=== PATIENT | female | born 2000 | race Caucasian/White ===

== ENCOUNTER 2021-01-01 14:37 | Emergency (ER) | payer OTHER, SELFPAY ==
[2021-01-01 17:15] VITALS: BP 137/90; PULSE 88; RESP 19; TEMP 36.8; O2SAT 99; BMI 25.4
[2021-01-01 17:21] LABS: UTC Pregnancy Test, Urine Negative (Negative)
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
[2021-01-01 18:59] VITALS: BP 137/90; PULSE 88; RESP 19; TEMP 36.8
== END 2021-01-01 19:02 | disposition home or self-care (01) ==
PROVIDERS: Emergency Provider Nurse Practitioner
DX: S16.1XXA Strain of muscle, fascia and tendon at neck level, initial encounter (principal); V43.52XA Car driver injured in collision with other type car in traffic accident, initial encounter; Y92.414 Local residential or business street as the place of occurrence of the external cause
CPT/HCPCS: 29799; 72040; 72100; 81025; 99202; G0463

== ENCOUNTER 2023-02-11 22:21 | Emergency (ER) | payer MEDICAID, SELFPAY ==
[2023-02-11 22:22] VITALS: BP 130/89; PULSE 92; RESP 16; TEMP 36.7; O2SAT 100; BMI 23.6
--- OUTSIDE RECORDS SUMMARY | 2023-02-11 22:29 | XMS_ITS | Patient Health Record ---
Author Name Unknown Organization [facility] Address [address] [place] [address] Care Team Providers Care Field Crop Ii Farmworker Name Role Phone Darlin Madrid Unavailable [phone] Allergies No Known Allergies Reason For Referral No Information Medications Medication SIG (Take, Route, Fr equency, Duration) Notes Start Date End Date Status Kyleena 19.5 MG as directed Intrauterine Active Social History Tobacco Use: Social History Observation Description Date Details (start date - stop date) Current Smoker NA - NA Tobacco Use/Smoking Question Answer Notes Are you a current smoker How often do you smoke cigarettes? every day Additional Findings: Tobacco User Pipe smoker Alcohol Screen Question Answer Notes Did you have a drink containing alcohol in the p ast year? No Points 0 Interpretation Negative Problems Problem Type SNOMED Code ICD Code Onset Dates Problem Status W/U Status Risk Notes Problem Insertion of intrauterine contraceptive device (52870857) Encounter for insertion of intrauterine contraceptive device (IUD) (Z30.430) Active confirmed Plan Of Treatment No Information Insurance Providers Payer Name Payer Address Payer Phone Subscriber Number Group Number Insured Name Patient Relationship to Insured Coverage Start Date Coverage End Date [employer] [address] [address] [place], [place] [id number] Trang Mercado Self - patient is the insured 2 Medical (General) History Medical History History ICD Code Amemia Anxiety Depression asthma Surgical History Surgery Date(Month/Year) Oral
[2023-02-11 23:00] VITALS: BP 129/86; PULSE 86; O2SAT 98
--- NOTE | 2023-02-11 23:05 | CT_ITS ---
PROCEDURE INFORMATION: Exam: CT Abdomen And Pelvis With Contrast Exam date and time: 02/11/2023 11:36 PM Age: 23 years old Clinical indication: Abdominal pain; Additional info: Abd pain, more focal in ruq and rlq TECHNIQUE: Imaging protocol: Computed tomography of the abdomen and pelvis with contrast. Total images: 272 Radiation optimization: All CT scans at this facility use at least one of these dose optimization techniques: automated exposure control; mA and/or kV adjustment per patient size (includes targeted exams where dose is matched to clinical indication); or iterative reconstruction. Contrast material: ISOVUE; Contrast volume: 75 ml; Contrast route: IV; COMPARISON: CR XR LUMBAR SPINE 2-3V 01/01/2021 5:48 PM FINDINGS: Lungs: Lung bases are clear. Heart: Normal heart size. Liver: Normal. No mass. Gallbladder and bile ducts: Normal. No calcified stones. No ductal dilation. Pancreas: Normal. No ductal dilation. Spleen: Normal. No splenomegaly. Adrenal glands: Normal. No mass. Kidneys and ureters: No hydronephrosis, nephrolithiasis, or renal mass. No perinephric fluid. Stomach and bowel: Unremarkable stomach and duodenum. No ileus or bowel obstruction. Small bowel appears within normal limits. Unremarkable terminal ileum. Shallow scattered colonic air-fluid levels may reflect diarrheal state. No evidence for active colitis. Collapsed rectum. Appendix: Normal appendix. Intraperitoneal space: Unremarkable. No free air. No significant fluid collection. Vasculature: Abdominal aorta is normal in caliber. Major abdominal vessels enhance appropriately. Lymph nodes: Unremarkable. No enlarged lymph nodes. Urinary bladder: Collapsed bladder. Reproductive: Anteverted nonenlarged uterus containing an IUD. Pelvic venous congestion. 2.5 cm right ovarian cyst requiring no strict follow-up. Bones/joints: No acute osseous abnormality or concerning bone lesions. Soft tissues: Tiny fat containing periumbilical hernia. IMPRESSION: 1. Scattered shallow colonic air-fluid levels may reflect diarrheal state. No active colitis. 2. 2.5 cm right ovarian cyst requiring no strict follow-up. 3. Normal appendix. 4. Pelvic venous congestion. 5. Status post IUD.
--- NOTE | 2023-02-11 23:08 | HMH.EDGENADL ---
Discharge Plan Disposition Patient Disposition: Home, Self-Care Condition: Good Prescriptions Prescriptions: No Action albuterol sulfate 1.25 MG/3 ML solution for nebulization 1.25 mg IH NEEDED PRN (Reason: ALLERGIES) cyclobenzaprine 10 MG tablet 10 mg PO TID PRN (Reason: Muscle Spasm) Qty: 15 0RF etodolac 200 MG capsule 200 mg PO Q8HP PRN (Reason: Moderate Pain) Qty: 20 0RF Referrals Follow up/Referrals: Provider,Referral, MD [Primary Care Provider] - See instructions Activity Restrictions/Add. Instructions Additional Instructions/Restrictions: You have been evaluated in the ED for your complaints. You may follow-up with your PCP in the next 3 to 5 days. Please return to ED for any new or worsening symptoms. Please follow-up with your residential housekeeper as discussed. I have also provided you with pamphlet for gynecology referral. Please take Tylenol and ibuprofen as needed for pain. Clinical Impressions Clinical Impression: Abdominal pain, right lower quadrant, Pelvic congestion Ovarian cyst Qualifiers: Laterality: right Qualified Code(s): N83.201 - Unspecified ovarian cyst, right side Instructions Patient Instructions: DI for Acute Abdominal Pain Discharge ED Provider: Cristhian Pollock General Adult HPI General Chief complaint: Abdominal Pain Stated complaint: pelvic pain Time Seen by Provider: 02/11/23 23:17 Mode of Arrival: Ambulatory Source of Information: Patient Limitations: No Limitations Description of Symptoms (Recalled from ER Triage Doc. by RN): Pt presents with RLQ pain associated with intermittent nausea that began on Friday. History of Present Illness HPI narrative: 23-year-old female with no pertinent past medical history, presents today for evaluation concerning right lower quadrant abdominal pain which she states she noticed about 3 months ago. She states that on Friday her pain worsened. Has had associated nausea without emesis. She denies any fevers, chills, chest pain, shortness of breath, dysuria, hematuria, diarrhea, constipation. She states that she has an IUD in place. Denies any vaginal bleeding. No further complaints. Related Data Home Medications Medication Instructions Recorded Confirmed albuterol sulfate 1.25 mg/3 mL 1.25 mg IH NEEDED PRN ALLERGIES 01/01/21 01/01/21 solution for nebulization Previous Rx's Medication Instructions Recorded cyclobenzaprine 10 mg tablet 10 mg PO TID PRN Muscle Spasm #15 01/01/21 tabs etodolac 200 mg capsule 200 mg PO Q8HP PRN Moderate Pain 01/01/21 #20 caps Allergies Allergy/AdvReac Type Severity Reaction Status Date / Time erythromycin base Allergy Verified 01/01/21 15:29 [facility] Disclaimer: The information contained in this section may have been updated after the patient was seen, as this information can be updated by other users. Social History Smoking Status: Current every day smoker alcohol intake: current current occupational status: employed Travel in the last 8 weeks: None ROS Obtained: Yes All systems reviewed & no additional complaints except as documented Physical Exam General General appearance: alert and in no apparent distress Head Head exam: atraumatic and normocephalic Eye Eye exam: Present normal appearance, PERRL and EOMI ENT ENT exam: Present normal oropharynx and mucous membranes moist Neck Neck exam: Present full ROM; Absent meningismus Respiratory Respiratory exam: Absent respiratory distress, wheezes, stridor or accessory muscle use Cardiovascular Cardiovascular exam: Present normal rhythm Abdominal Exam Abdominal exam: Present soft and tenderness (Generalized tenderness palpation of the abdomen are more focal in the right upper quadrant and right lower quadrant. No rebound or guarding.); Absent distention, guarding, rebound or rigidity Neurological Exam Neurological exam: Present alert, oriented X3 and CN II-XII intact; Absent motor sensory deficit Psychiatric Psychiatric exam: Present normal affect and normal mood Skin Skin exam: Present warm and dry Medical Decision Making Medical Records Medical records reviewed: Yes I reviewed the patient's medical records. Cullen Inquiry Pt receiving controlled substance: No Cullen was queried for this patient: No Vital Signs: 02/11/23 22:22 02/11/23 23:00 02/11/23 23:39 Temperature 98.1 F Temperature Source Oral Pulse Rate 86 114 H Pulse Rate [Right] 92 H Respiratory Rate 16 Blood Pressure 129/86 129/98 H Blood Pressure [Right Arm] 130/89 Blood Pressure Mean 95 Blood Pressure Mean [Right Arm] 102 Blood Pressure Source [Right Arm] Automatic Cuff Blood Pressure Position [Right Arm] Supine 02 Sat by Pulse Oximetry 100 98 97 Oxygen Delivery Method Room Air Room Air 02/12/23 00:00 Temperature Temperature Source Pulse Rate 76 Pulse Rate [Right] Respiratory Rate Blood Pressure 119/69 Blood Pressure [Right Arm] Blood Pressure Mean Blood Pressure Mean [Right Arm] Blood Pressure Source [Right Arm] Blood Pressure Position [Right Arm] 02 Sat by Pulse Oximetry 99 Oxygen Delivery Method Lab Data Lab Results 02/11/23 23:00: WBC 9.0, RBC 4.59, Hgb 13.8, Hct 41.4, MCV 90.2, MCH 30.1, MCHC 33.4, RDW 12.7, Plt Count 248, MPV 8.8, Neut % (Auto) 44.3, Lymph % (Auto) 45.6, [place] % (Auto) 4.6, Eos % (Auto) 4.7, Baso % (Auto) 0.8, Neut # (Auto) 4.0, Lymph # (Auto) 4.1, [place] # (Auto) 0.4, Eos # (Auto) 0.4, Baso # (Auto) 0.1, Sodium 139, Potassium 3.3 L, Chloride 105, Carbon Dioxide 22, Anion Gap 15.3 H, BUN 12, Creatinine 0.60, Estimated Creat Clear 128, Estimated GFR 122, Est GFR ( Amer) 147, Glucose 99, Calcium 9.2, Total Bilirubin 0.3, AST 46 H, ALT 19, Alkaline Phosphatase 60, Total Protein 7.3, Albumin 4.5, Globulin 2.8, Albumin/Globulin Ratio 1.6, Lipase 212, Serum HCG, Qual Negative 02/12/23 00:15: Urine Color Yellow, Urine Appearance Clear, Urine pH 7.0, Ur Specific [place] <= 1.005, Urine Protein Negative, Urine Glucose (UA) Negative, Urine Ketones Negative, Urine Blood Negative, Urine Nitrate Negative, Urine Bilirubin Negative, Urine Urobilinogen 0.2, Ur Leukocyte Esterase Negative, Urine RBC None, Urine WBC Occasional, Ur Squamous Epith Cells 3-5, Urine Bacteria Trace 02/11/23 23:00 02/11/23 23:00 Orders (Tests/Meds): ED MEDICATIONS Generic Name Dose Route Start Last Admin Trade Name Freq PRN Reason Stop Dose Admin Sodium Chloride 10 ml 02/11/23 23:41 02/11/23 23:42 Sodium Chloride 0.9% 10ml Syr (Rad Only) IV 03/13/23 23:40 10 ml NEEDED PRN Administration Maintain IV Site Discontinued Medications Generic Name Dose Route Start Last Admin Trade Name Freq PRN Reason Stop Dose Admin Acetaminophen 1,000 mg 02/11/23 23:19 02/11/23 23:21 Acetaminophen 500mg Tab PO 02/11/23 23:20 1,000 mg ONCE ONE Administration Iopamidol 75 ml 02/11/23 23:41 02/11/23 23:42 Iopamidol-370 (76%);100ml Bottle IV 02/11/23 23:42 75 ml ONCE ONE Administration Morphine Sulfate 2 mg 02/11/23 23:05 02/11/23 23:22 Morphine 2mg/Ml Syringe IV 02/11/23 23:06 Not Given ONCE ONE Ondansetron HCl 4 mg 02/11/23 23:05 02/11/23 23:22 Ondansetron 4mg/2ml Vial IV 02/11/23 23:06 Not Given ONCE ONE ORDERS Category Date Time Status CT abdomen pelvis w con Stat Cat Scan 02/11/23 23:05 Completed Complete Blood Count Auto Diff Stat Lab 02/11/23 23:00 Completed Comprehensive Metabolic Panel Stat Lab 02/11/23 23:00 Completed HCG Qualitative, Serum Stat Lab 02/11/23 23:00 Completed Lactic Acid Stat Lab 02/11/23 23:05 Ordered Lipase Stat Lab 02/11/23 23:00 Completed Urinalysis and Microscopic Stat Lab 02/12/23 00:15 Completed Medical Decision Narrative: 23-year-old female with no pertinent past medical history, presents today for evaluation concerning right lower quadrant abdominal pain which she states she noticed about 3 months ago. Pain worsened on this past Friday. Stated the pain seems to radiate across her abdomen. States that she has an IUD in place. Has not had any vaginal bleeding. On assessment, she was hemodynamically stable and in no acute distress. Afebrile. Physical exam was remarkable for generalized tense palpation of the abdomen however more focal in the right upper quadrant and right lower quadrant regions. Other physical exam findings were unremarkable. Differential diagnoses include but not limited to appendicitis, ovarian cyst, cholelithiasis, cholecystitis, gastritis, pancreatitis, among others. Patient's lab workup today has been nonactionable. Urinalysis with no signs of UTI. Negative . Did order CT imaging and a 2.5 cm right ovarian cyst was noted. Also findings consistent with pelvic congestion. On reassessment patient ever medically stable and in no acute distress. Symptoms improved. Discussed ED workup and results and current plan to discharge with gynecology follow-up. She states she has residential housekeeper that she would like to see however I did provide her with a pamphlet with gynecology referrals. Instructed her concerning pain control and signs and symptoms to look for with strict return ED precautions. Verbalized understanding and agreed with plan. Subsequently discharged home in medically stable in no acute distress. Critical Care Critical Care Time Critical Care Time: No
[2023-02-11 23:14] LABS: Basophils # 0.1 K/mm3 (0-0.2); Basophils % 0.8 % (0.1-2.0); Eosinophils # 0.4 K/mm3 (0.0-0.4); Eosinophils % 4.7 % (0.1-12.0); Hematocrit 41.4 % (37.0-47.0); Hemoglobin 13.8 g/dL (12.2-16.2); Lymphocytes # 4.1 K/mm3 (0.7-4.5); Lymphocytes % 45.6 % (10-50); Mean Corpuscular HGB Conc 33.4 g/dL (31.8-35.4); Mean Corpuscular Hemoglobin 30.1 pg (27.0-31.2); Mean Corpuscular Volume 90.2 fl (81-99); Mean Platelet Volume 8.8 fl (7.4-10.4); Monocytes # 0.4 K/mm3 (0.1-1.0); Monocytes % 4.6 % (1.7-9.3); Neutrophils % 44.3 % (37.0-80.0); Platelet Count 248 K/mm3 (142-424); Red Blood Count 4.59 M/mm3 (4.20-5.40); Red Cell Distribution Width 12.7 % (11.5-17.5)
[2023-02-11] MEDS: ACETAMINOPHEN 500MG TAB 1000 MG PO (23:21)
[2023-02-11 23:22] LABS: HCG Qualitative, Serum Negative (Negative)
[2023-02-11 23:23] LABS: Chloride 105 mmol/L (98-107); Potassium 3.3 mmoL/L (3.5-5.1); Sodium 139 mmol/L (136-145)
[2023-02-11 23:26] LABS: Alanine Aminotransferase 19 U/L (12-78); Alkaline Phosphatase 60 U/L (38-126); Anion Gap 15.3 mEq/L (5-15); Aspartate Amino Transferase 46 U/L (14-36); Bilirubin,Total 0.3 mg/dl (0.2-1.3); Blood Urea Nitrogen 12 mg/dl (7-17); Calcium 9.2 mg/dl (8.4-10.2); Carbon Dioxide 22 mmol/L (22.0-30.0); Creatinine Clearance Estimated 128 mL/min (50-200); Estimated Glomerular Filt Rate 122 ml/min (>60); GFR (African American) 147 ML/MIN (>60); Glucose 99 mg/dl (74-100); Lipase 212 U/L (23-300); Total Protein,Serum 7.3 g/dl (6.3-8.2)
[2023-02-11 23:27] LABS: Albumin Level 4.5 g/dl (3.5-5.0); Albumin/Globulin Ratio 1.6 (1.1-1.8); Globulin 2.8 g/dL (1.3-3.2)
[2023-02-11 23:39] VITALS: BP 129/98; PULSE 114; O2SAT 97
[2023-02-11] MEDS: SODIUM CHLORIDE 0.9% 10ML SYR (RAD ONLY) 10 ML IV (23:42)
[2023-02-11] MEDS: IOPAMIDOL-370 (76%);100ML BOTTLE 75 ML IV (23:42)
[2023-02-12] VITALS: BP 119/69; PULSE 76; O2SAT 99
[2023-02-12 00:38] LABS: Microscopic, Urine URINE MICROSCOPIC (MICROSCOPIC)
[2023-02-12 00:42] LABS: Appearance,Urine CLEAR (Clear); Bilirubin,Urine Negative (Negative); Blood, Urine Negative (Negative); Color,Urine YELLOW (Yellow); Glucose,Urine (UA) Negative (Negative); Ketones,Urine Negative (Negative); Leukocyte Esterase,Urine Negative (Negative); Nitrate,Urine Negative (Negative); Protein,Urine Negative (Negative); Specific Gravity, Urine <= 1.005 (1.005-1.030); Urobilinogen,Urine 0.2 EU/dl (0.2)
[2023-02-12 00:55] LABS: Bacteria,Urine Trace /lpf; WBC,Urine Occasional #/hpf (0-3)
[2023-02-12 01:26] VITALS: BP 132/68; PULSE 77; RESP 18; TEMP 36.7; O2SAT 98
== END 2023-02-12 01:27 | disposition home or self-care (01) ==
PROVIDERS: Emergency Provider Emergency Medicine; PCP Physician Assistant Medical
DX: R10.31 Right lower quadrant pain (principal); R11.0 Nausea; F17.200 Nicotine dependence, unspecified, uncomplicated
CPT/HCPCS: 74177; 80053; 81001; 83690; 84703; 85025; 99285; J2405; Q9967

== ENCOUNTER 2024-06-10 21:10 | Emergency (ER) | payer MEDICAID, SELFPAY ==
[2024-06-10] VITALS (7 sets, daily range): BP systolic 121–138; BP diastolic 74–90; PULSE 74–90; RESP 14–20; TEMP 36.5–36.7; O2SAT 97–100; BMI 26.4
--- NOTE | 2024-06-10 21:26 | ECG_ITS ---
APPROVED REPORT Exam: Resting ECG HR:78 bpm ECG Measurements Heart Rate 78 AXES SC 148 P 50 QRSd 91 QRS 47 QT 375 T 16 QTc 408 Conclusion SINUS RHYTHM Slight ST elevation in lead II but no contiguous or reciprocal changes. No STEMI Electronically signed by : NELLY ZAMORA, 06/11/2024 02:47:11
--- NOTE | 2024-06-10 21:50 | ED_ITS ---
Discharge Plan Disposition Patient Disposition: Home, Self-Care Condition: Good Chief Complaint: Chest Pain Prescriptions Prescriptions: No Action albuterol sulfate 1.25 MG/3 ML solution for nebulization 1.25 mg IH NEEDED PRN (Reason: ALLERGIES) cyclobenzaprine 10 MG tablet 10 mg PO TID PRN (Reason: Muscle Spasm) Qty: 15 0RF etodolac 200 MG capsule 200 mg PO Q8HP PRN (Reason: Moderate Pain) Qty: 20 0RF Referrals Follow up/Referrals: Maldonado Ramesh PA [Primary Care Provider] - See instructions Activity Restrictions/Add. Instructions Additional Instructions/Restrictions: Please follow up with your primary care provider in 2-3 days. Please return to ED if your symptoms worsen, change in location, change in severity, new symptoms develop or if you become concerned for your health. Clinical Impressions Clinical Impression: Chest pain Print Language Print Language: Welsh Discharge ED Provider: Ilan Espino Adult HPI General Chief complaint: Chest Pain Stated complaint: chest discomfort,dizzy and whitespots Time Seen by Provider: 06/10/24 21:50 Mode of Arrival: Ambulatory Source of Information: Patient Description of Symptoms (Recalled from ER Triage Doc. by RN): Patient reports chest pain x4 days after eating BigMac. Patient reports recent fatigue. Dizziness today with tunnel vision today at work. Related Data Home Medications ?Medication ?Instructions ?Recorded ?Confirmed albuterol sulfate 1.25 mg/3 mL 1.25 mg IH NEEDED PRN ALLERGIES 01/01/21 01/01/21 solution for nebulization Previous Rx's ?Medication ?Instructions ?Recorded cyclobenzaprine 10 mg tablet 10 mg PO TID PRN Muscle Spasm #15 01/01/21 tabs etodolac 200 mg capsule 200 mg PO Q8HP PRN Moderate Pain 01/01/21 #20 caps Allergies Allergy/AdvReac Type Severity Reaction Status Date / Time erythromycin base Allergy Verified 01/01/21 15:29 [facility] Disclaimer: The information contained in this section may have been updated after the patient was seen, as this information can be updated by other users. Social History (Updated 02/12/23 @ 01:15 by Cristhian Pollock DO) Smoking Status: Current every day smoker alcohol intake: current alcohol intake frequency: holidays/special occasions only current occupational status: employed Travel in the last 8 weeks?: None Have you lived/traveled outside US in past 30 days?: No Contact w/someone who lives/traveled outside US past 30 days?: No Exposure to someone with infectious disease in past 14 days?: No Do you have a fever (greater than 100.4 F or 38 C)?: No Have you tested positive for COVID-19?: No Exposed to someone with COVID-19 in past 14 days?: No Do you have a sore throat?: No Do you have a cough?: No Do you have any weakness?: No Do you have any diarrhea?: No Are you experiencing any unusual bleeding?: No Do you have any muscle aches/pain?: No Do you have any abdominal pain?: No Are you experiencing loss of taste or smell?: No ROS Obtained: Yes All systems reviewed & no additional complaints except as documented Physical Exam General General appearance: alert Respiratory Respiratory exam: Present normal lung sounds bilaterally and respiratory distress Cardiovascular Cardiovascular exam: Present regular rate, normal rhythm and other (no LE edema) Neurological Exam Neurological exam: Present alert and oriented X3 Medical Decision Making Medical Records Screening: Per USPSTF and CDC recommendations, given the prevalence of disease in our region, it is our hospital?s policy to screen for HIV and viral Hepatitis for all patients aged 18 and over and those with ongoing risk factors. [place] Inquiry Pt receiving controlled substance: No Vital Signs: 06/10/24 21:17 06/10/24 21:30 06/10/24 22:20 Temperature 97.7 F Temperature Source Tympanic Pulse Rate 90 78 Pulse Rate [Right] 88 Respiratory Rate 16 Blood Pressure 123/85 Blood Pressure [Right Arm] 138/90 Blood Pressure Mean [Right Arm] 106 Blood Pressure Source Blood Pressure Position 02 Sat by Pulse Oximetry 100 99 Oxygen Delivery Method Room Air Room Air 06/10/24 22:49 06/10/24 22:50 06/10/24 22:51 Temperature 98.0 F 98.0 F 98.0 F Temperature Source Oral Oral Oral Pulse Rate 82 80 86 Pulse Rate [Right] Respiratory Rate 20 20 20 Blood Pressure 124/74 135/82 121/84 Blood Pressure [Right Arm] Blood Pressure Mean [Right Arm] Blood Pressure Source Automatic Cuff Automatic Cuff Automatic Cuff Blood Pressure Position Supine Sitting Standing 02 Sat by Pulse Oximetry 98 97 99 Oxygen Delivery Method Room Air Room Air Room Air Lab Data Lab Results 06/10/24 21:40: WBC 10.8, RBC 4.62, Hgb 13.6, Hct 40.1, MCV 86.8, MCH 29.4, MCHC 33.9, RDW 12.7, Plt Count 300, MPV 10.8 H, Neut % (Auto) 47.6, Lymph % (Auto) 41.9, [place] % (Auto) 4.6, Eos % (Auto) 5.1, Baso % (Auto) 0.6, Neut # (Auto) 5.1, Lymph # (Auto) 4.5, [place] # (Auto) 0.5, Eos # (Auto) 0.6 H, Baso # (Auto) 0.1, Sodium 139, Potassium 3.4 L, Chloride 106, Carbon Dioxide 23, Anion Gap 13.4, BUN 8, Creatinine 0.60, Estimated Creat Clear 142, Estimated GFR 121, Est GFR ( Amer) 146, Glucose 111 H, Calcium 9.6, Total Bilirubin 0.2, AST 67 H, ALT 33, Alkaline Phosphatase 68, Troponin I < 0.01, Total Protein 7.6, Albumin 4.9, Globulin 2.7, Albumin/Globulin Ratio 1.8 06/10/24 21:40 06/10/24 21:40 Orders (Tests/Meds): ED MEDICATIONS Generic Name Dose Route Start Last Admin Trade Name Freq PRN Reason Stop Dose Admin Nitroglycerin 0.4 mg 06/10/24 22:11 Nitroglycerin 0.4mg Sl Tablet SL 06/11/24 22:11 Q5MINP PRN Chest Pain Sodium Chloride 8 ml 06/10/24 22:31 Sodium Chloride 0.9% 10ml Vial IV 07/10/24 22:30 NEEDED PRN dilute pepcid Discontinued Medications Generic Name Dose Route Start Last Admin Trade Name Freq PRN Reason Stop Dose Admin Acetaminophen 1,000 mg 06/10/24 22:31 06/10/24 22:46 Acetaminophen 500mg Tab PO 06/10/24 22:32 1,000 mg ONCE ONE Administration Aspirin 324 mg 06/10/24 22:11 06/10/24 22:17 Aspirin 81mg Chewable Tablet PO 06/10/24 22:12 324 mg ONCE ONE Administration Belladonna Alkaloids 60 ml 06/10/24 22:31 06/10/24 22:46 Belladonna Alkaloids 60 Ml Ml PO 06/10/24 22:32 60 ml ONCE ONE Administration Famotidine 20 mg 06/10/24 22:31 06/10/24 22:46 Famotidine 20mg/2ml Vial IV 06/10/24 22:32 20 mg ONCE ONE Administration Lactated Ringer's 500 mls @ 999 mls/hr 06/10/24 22:32 06/10/24 22:47 Lactated Ringer's 500ml IV 06/10/24 23:02 999 mls/hr .Q31M ONE Administration Ketorolac Tromethamine 15 mg 06/10/24 22:31 06/10/24 22:47 Ketorolac 30mg/Ml Vial IV 06/10/24 22:32 15 mg ONCE ONE Administration ORDERS Category Date Time Status XR chest portable Stat Exams 06/10/24 22:11 Completed Complete Blood Count Auto Diff Stat Lab 06/10/24 21:40 Completed Comprehensive Metabolic Panel Stat Lab 06/10/24 21:40 Completed Troponin I Q3H Lab 06/11/24 01:15 Ordered Troponin I Q3H Lab 06/11/24 04:15 Ordered Troponin I Stat Lab 06/10/24 21:40 Completed Medical Decision Narrative: Patient is a 24-year-old female with no significant past medical history presents today for chest pain. She reports that she was standing at work today, and began to feel palpitations and some chest tightness. She felt lightheaded, but did not syncopized. She sat down and symptoms improved. She denies any radiation of the pain. She reports that it is worse when twisting and bending. She does lift heavy objects at work often. She denies any trauma to the area. She also reports some burning when consuming a tea this afternoon as well as epigastric tenderness. Denies any fevers cough congestion numbness weakness tingling syncope. No lower extremity edema In summary, this 24-year-old female presents to the emergency department today with chest pain. On initial evaluation patient is afebrile, hemodynamically stable in express. On exam warm well-perfused. Heart is regular rhythm lung sounds are clear to auscultation bilaterally. No murmurs rubs or gallops.. Differential diagnosis includes but is not limited to ACS, PE, PR, costochondritis, pneumothorax. Based on these concerns, I ordered CBC CMP troponin chest x-ray. I reviewed prior records including. ECG personally interpreted demonstrates normal sinus rhythm with no acute ischemic ST changes and intervals within normal limits.. Patient received Toradol, Pepcid, Tylenol, fluids for treatment. Labs personally reviewed demonstrate no evidence of anemia no leukocytosis, mild hypokalemia, no NASIR.. XR personally interpreted demonstrates no acute intrathoracic process. I considered CT PE, however when applying PERC criteria, patient is low risk PE and so was deferred On reassessment patient reports improvement in her symptoms.. Of note, social determinants of health include poor health literacy. At this time it was felt that the patient was safe to be discharged home. The patient was in agreement with this plan. The patient was given strict return precautions prior to being discharged from the emergency department. Critical Care Critical Care Time Critical Care Time: No
--- NOTE | 2024-06-10 22:11 | XR_ITS ---
PROCEDURE INFORMATION: Exam: XR Chest Exam date and time: 06/10/2024 10:18 PM Age: 24 years old Clinical indication: Pain; Chest pressure; Additional info: Chest pain TECHNIQUE: Imaging protocol: Radiologic exam of the chest. Views: 1 view. COMPARISON: CT ABDOMEN PELVIS W CON 02/11/2023 11:36 PM FINDINGS: Lungs: There appears to be subtle airspace disease within the left lower lung zone. Pleural spaces: Unremarkable. No pleural effusion. No pneumothorax. Heart/Mediastinum: Unremarkable. No cardiomegaly. Vasculature: Unremarkable. Bones/joints: Unremarkable. IMPRESSION: Subtle left lower lung zone airspace disease may represent pneumonia however, overlying soft tissue artifact could cause this appearance. PA and lateral film may or unenhanced CT of the chest could be performed as clinically indicated.
[2024-06-10] MEDS: ASPIRIN 81MG CHEWABLE TABLET 324 MG PO (22:17)
--- NOTE | 2024-06-10 22:17 | PC.NURSE ---
xray done at bedside
[2024-06-10 22:18] LABS: Albumin Level 4.9 g/dl (3.5-5.0); Chloride 106 mmol/L (98-107); Sodium 139 mmol/L (136-145)
[2024-06-10 22:19] LABS: Potassium 3.4 mmoL/L (3.5-5.1)
[2024-06-10 22:21] LABS: Alanine Aminotransferase 33 U/L (12-78); Albumin/Globulin Ratio 1.8 (1.1-1.8); Alkaline Phosphatase 68 U/L (38-126); Anion Gap 13.4 mEq/L (5-15); Aspartate Amino Transferase 67 U/L (14-36); Bilirubin,Total 0.2 mg/dl (0.2-1.3); Blood Urea Nitrogen 8 mg/dl (7-17); Carbon Dioxide 23 mmol/L (22.0-30.0); Creatinine Clearance Estimated 142 mL/min (50-200); Estimated Glomerular Filt Rate 121 ml/min (>60); GFR (African American) 146 ML/MIN (>60); Globulin 2.7 g/dL (1.3-3.2); Total Protein,Serum 7.6 g/dl (6.3-8.2)
[2024-06-10 22:22] LABS: Calcium 9.6 mg/dl (8.4-10.2); Glucose 111 mg/dl (74-100)
[2024-06-10 22:30] LABS: Basophils # 0.1 K/mm3 (0-0.2); Basophils % 0.6 % (0.1-2.0); Eosinophils # 0.6 Kmm3 (0.0-0.4); Eosinophils % 5.1 % (0.1-12.0); Hematocrit 40.1 % (37.0-47.0); Hemoglobin 13.6 g/dL (12.2-16.2); Lymphocytes # 4.5 K/mm3 (0.7-4.5); Lymphocytes % 41.9 % (10-50); Mean Corpuscular HGB Conc 33.9 g/dL (31.8-35.4); Mean Corpuscular Hemoglobin 29.4 pg (27.0-31.2); Mean Corpuscular Volume 86.8 fl (81-99); Mean Platelet Volume 10.8 fl (7.4-10.4); Monocytes # 0.5 K/mm3 (0.1-1.0); Monocytes % 4.6 % (1.7-9.3); Neutrophils # 5.1 K/mm3 (1.8-7.8); Neutrophils % 47.6 % (37.0-80.0); Nucleated Red Blood Cells # 0 10^3/uL; Nucleated Red Blood Cells % 0 %; Platelet Count 300 K/mm3 (142-424); Red Blood Count 4.62 M/mm3 (4.20-5.40); Red Cell Distribution Width 12.7 % (11.5-17.5); Red Cell Distribution Width-SD 39.9 fL; White Blood Count 10.8 K/mm3 (4.8-10.8)
[2024-06-10] MEDS: FAMOTIDINE 20MG/2ML VIAL 20 MG IV (22:46)
[2024-06-10] MEDS: BELLADONNA ALKALOIDS 60 ML ML PO (22:46)
[2024-06-10] MEDS: ACETAMINOPHEN 500MG TAB 1000 MG PO (22:46)
[2024-06-10] MEDS: KETOROLAC 30MG/ML VIAL 15 MG IV (22:47)
[2024-06-10] MEDS: RINGERS SOLUTION,LACTATED 500 ML 999 ML IV (22:47)
[2024-06-10 22:48] LABS: Troponin I < 0.01 ng/ml (0.00-0.034)
== END 2024-06-11 | disposition home or self-care (01) ==
PROVIDERS: Emergency Provider Emergency Medicine; PCP Physician Assistant Medical
DX: R07.89 Other chest pain (principal); R42 Dizziness and giddiness
CPT/HCPCS: 71045; 80053; 84484; 85025; 93005; 96374; 96375; 99285; J1885; J7120

== ENCOUNTER 2024-07-20 18:31 | Outpatient (CLI) | payer MEDICAID, SELFPAY ==
--- OUTSIDE RECORDS SUMMARY | 2023-03-10 10:30 | XMS_ITS ---
Author Organization [facility] Address [address] [place] [address] Care Team Providers Care Stringed Instrument Assembler Name Role Phone Darlin Madrid Unavailable [phone] Carlos, Facundochristiano Unavailable [phone] REASON FOR VISIT ER follow up, ovarian cyst Social History Sex Assigned At : Social History Observation Description Sex Assigned At Female Encounters Encounter Location Date Provider Diagnosis [facility] [address] [place] [address] 03/10/2023 Josy Gonzalez Plan Of Treatment No Information Progress Notes * Dontrell MERCADOB:2000 (24 yo F)Acc No.[id number]:03/10/2023 Progress Note Patient: Trang Escobdeo Provider: Brooks Gonzalez CNM :2000 A ge:23 Y S ex:Female Date:03/10/2023 [id number] Subjective: * Chief Complaints: * E R follow up, ovarian cyst * Electronic signature of Facundo Gonzalez CNM on 07/21/2024 at 12:47 PM EDT Sign off status: Pending Visit Status: R /S (Rescheduled) * Provider: Brooks Gonzalez CNM Date: 0 03/10/2023 Generated for Printi ng/Faxing/eTransmitting on: 0 07/21/2024 12:47 PM EDT
--- OUTSIDE RECORDS SUMMARY | 2023-04-28 10:30 | XMS_ITS ---
Author Organization [facility] Address [address] [place] [address] Care Team Providers Care Gas Welder Apprentice Name Role Phone Darlin Madrid Unavailable [phone] CarlosFacundochristiano Unavailable [phone] Allergies No Known Allergies REASON FOR VISIT ER follow up, ovarian cyst Medications Medication SIG (Take, Route, Frequency, Duration) Notes Start Date End Date Status Kyleena 19.5 MG Intrauterine Device as directed Intrauterine Active Social History Sex Assigned At : Social History Observation Description Sex Assigned At Female Encounters Encounter Location Date Provider Diagnosis [facility] [address] [place] [address] 04/28/2023 Josy Gonzalez Plan Of Treatment No Information Progress Notes * Bailey MERCADOaDOB:2000 (24 yo F)Acc No.[id number]:04/28/2023 Progress Note Patient: Trang Escobedo Provider: Brooks Gonzalez CNM :2000 A ge:23 Y S ex:Female Date:04/28/2023 Address:[facility] [address] [id number] Subjective: * Chief Complaints: * E R follow up, ovarian cyst * Medical History: Amemia Anxiety Depression Asthma Medical History Verified * 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 * OB History: P regnancy History (GPA) Total Pregnancies 2 Full Term 2 AB. Spontaneous 1 Living 2 P regnancy # 1: n ormal spontaneous vaginal delivery (). P regnancy # 2: n ormal spontaneous vaginal delivery (). P regnancy # 3: s pontaneous . * Surgical History: Oral Surgical History verified. * Hospitalization/Major Diagno stic Procedure: Denies Past Hospitalization. Hospitalization Verified. * Family History: M other: alive. P aternal Grand Father: diagnosed with Heart disease, Diabetes mellitus without mention of complication, type II or unspecified type, not stated as uncontrolled. F amily History Verified.. * Social History: Social History Verified. No Social History documented. * Medications: T akingKyleena(Levonorgestrel) 19.5 MG Intrauterine Device as directed Intrauterine Medication List reviewed and reconciled with the patientTaking Kyleena(Levonorgestrel) 19.5 MG Intrauterine Device as directed Intrauterine Medication List reviewed and reconciled with the patient * Allergies: N .K.D.A.yesAllergies Verified. * Electronic signature of Facundo Gonzalez CNM on 07/21/2024 at 12:48 PM EDT Sign off status: Pending Visit Status: N /S (No-Show) * Provider: Brooks Gonzalez CNM Date: 0 04/28/2023 Generated for Peter mistry/Sameer/Elena on: 0 07/21/2024 12:48 PM EDT
--- OUTSIDE RECORDS SUMMARY | 2023-04-28 10:30 | XMS_ITS ---
Author Organization [facility] Address [address] [place] [address] Care Team Providers Care Human Relations Professor Name Role Phone Darlin Madrid Unavailable [phone] Carlos, Facundochristiano Unavailable [phone] REASON FOR VISIT ER follow up, ovarian cyst Social History Sex Assigned At : Social History Observation Description Sex Assigned At Female Encounters Encounter Location Date Provider Diagnosis [facility] [address] [place] [address] 04/28/2023 Josy Gonzalez Plan Of Treatment No Information Progress Notes * Dontrell MERCADOB:2000 (24 yo F)Acc No.[id number]:04/28/2023 Progress Note Patient: Trang Escobedo Provider: Brooks Gonzalez CNM :2000 A ge:23 Y S ex:Female Date:04/28/2023 [id number] Subjective: * Chief Complaints: * E R follow up, ovarian cyst * Electronic signature of Facundo Gonzalez CNM on 07/21/2024 at 12:47 PM EDT Sign off status: Pending Visit Status: N /S (No-Show) * Provider: Brooks Gonzalez CNM Date: 04/28/2023 Generated for Printi ng/Faxing/eTransmitting on: 0 07/21/2024 12:47 PM EDT
--- OUTSIDE RECORDS SUMMARY | 2024-07-21 12:47 | XMS_ITS | Encounter Summary ---
Author Organization [facility] Address [address] [place] [id number] Care Team Providers Care Farmer Vegetable Name Role Phone Unavailable Primary Care Provider Unavailabl e Encounter Details Date Type Department Care Team (Late st Contact Info) Description 02/13/2019 Transcribed Document [facility] [place] Family Medicine [address] [place] [address] ProviderKimberly MD [address] [place] [address] Social History Tobacco Use Types Packs/Day Years Used Date Smoking Tobacco: Never Assessed Comments Unknown Sex and Gender Information Value Date Recorded Sex Assigned at Not on file Legal Sex Female 1:09 PM CDT Gender Identity Not on file Sexual Orientation Not on file documented as of this encounter Miscellaneous Notes * Cerner Conversion Note - Historical ProviderMD - 02/13/2019 11:36 PM THROUGH OPERATOR Stroke/Warfarin Instructions Entered On: 02/13/2019 23:36 EST Performed On: 02/13/2019 23:36 EST by CHARLI RILEY, RN Stroke/Warfarin Instructions Stroke/TIA Discharge Ins : N/A Warfarin Discharge Ins : N/A CHARLI RILEY RN - 02/13/2019 23:36 EST Electronically signed by Sophy [facility] Conversion Universal Grinder Set Up Operator Cerner at 05/29/2022 8:15 AM CDT documented in this encounter Plan of Treatment Not on file documented as of this encounter Visit Diagnoses Not on filedocumented in this encounter
--- OUTSIDE RECORDS SUMMARY | 2024-07-21 12:47 | XMS_ITS | Encounter Summary ---
Author Organization [facility] Address [address] [place] [address] Care Team Providers Care Safe Deposit Attendant Name Role Phone Unavailable Primary Care Provider Unavailabl e Encounter Details Date Type Department Care Team (Late st Contact Info) Description 02/11/2019 Transcribed Document [facility] [place] Family Medicine [address] [place] [address] ProviderKimberly MD [address] [place] [address] Social History Tobacco Use Types Packs/Day Years Used Date Smoking Tobacco: Never Assessed Comments Unknown Sex and Gender Information Value Date Recorded Sex Assigned at Not on file Legal Sex Female 1:09 PM CDT Gender Identity Not on file Sexual Orientation Not on file documented as of this encounter Miscellaneous Notes * Cerner Conversion Note - Kimberly Norton MD - 02/11/2019 10:22 AM FINISHER MACHINE Patient Education Materials Follows: Vaginal Delivery, Care After Refer to this sheet in the next few weeks. These instructions provide you with information about caring for yourself after vaginal delivery. Your health care provider may also give you more specific instructions. Your treatment has been planned according to current medical practices, but problems sometimes occur. Call your health care provider if you have any problems or questions. What can I expect after the procedure? After vaginal delivery, it is common to have: ??? Some bleeding from your vagina. ??? Soreness in your abdomen, your vagina, and the area of skin between your vaginal opening and your anus (perineum). ??? Pelvic cramps. ??? Fatigue. Follow these instructions at home: Medicines ??? Take [id number] and prescription medicines only as told by your health care provider. ??? If you were prescribed an antibiotic medicine, take it as told by your health care provider. Do not stop taking the antibiotic until it is finished. Driving ??? Do not drive or operate heavy machinery while taking prescription pain medicine. ??? Do not drive for 24 hours if you received a sedative. Lifestyle ??? Do not drink alcohol. This is especially important if you are or taking medicine to relieve pain. ??? Do not use tobacco products, including cigarettes, chewing tobacco, or e-cigarettes. If you need help quitting, ask your health care provider. Eating and drinking ??? Drink at least 8 eight-ounce glasses of water every day unless you are told not to by your health care provider. If you choose to breastfeed your baby, you may need to drink more water than this. ??? Eat high-fiber foods every day. These foods may help prevent or relieve constipation. High-fiber foods include: ? Whole grain cereals and breads. ? Brown rice. ? Beans. ? Fresh fruits and vegetables. Activity ??? Return to your normal activities as told by your health care provider. Ask your health care provider what activities are safe for you. ??? Rest as much as possible. Try to rest or take a nap when your baby is sleeping. ??? Do not lift anything that is heavier than your baby or 10 lb (4.5 kg) until your health care provider says that it is safe. ??? Talk with your health care provider about when you can engage in sexual activity. This may depend on your: ? Risk of infection. ? Rate of healing. ? Comfort and desire to engage in sexual activity. Vaginal Care ??? If you have an episiotomy or a vaginal tear, check the area every day for signs of infection. Check for: ? More redness, swelling, or pain. ? More fluid or blood. ? Warmth. ? Pus or a bad smell. ??? Do not use tampons or douches until your health care provider says this is safe. ??? Watch for any blood clots that may pass from your vagina. These may look like clumps of dark red, brown, or black discharge. General instructions ??? Keep your perineum clean and dry as told by your health care provider. ??? Wear loose, comfortable clothing. ??? Wipe from front to back when you use the toilet. ??? Ask your health care provider if you can shower or take a bath. If you had an episiotomy or a perineal tear during labor and delivery, your health care provider may tell you not to take baths for a certain length of time. ??? Wear a bra that supports your breasts and fits you well. ??? If possible, have someone help you with household activities and help care for your baby for at least a few days after you leave the hospital. ??? Keep all follow-up visits for you and your baby as told by your health care provider. This is important. Contact a health care provider if: ??? You have: ? Vaginal discharge that has a bad smell. ? Difficulty urinating. ? Pain when urinating. ? A sudden increase or decrease in the frequency of your bowel movements. ? More redness, swelling, or pain around your episiotomy or vaginal tear. ? More fluid or blood coming from your episiotomy or vaginal tear. ? Pus or a bad smell coming from your episiotomy or vaginal tear. ? A fever. ? A rash. ? Little or no interest in activities you used to enjoy. ? Questions about caring for yourself or your baby. ??? Your episiotomy or vaginal tear feels warm to the touch. ??? Your episiotomy or vaginal tear is or does not appear to be healing. ??? Your breasts are painful, hard, or turn red. ??? You feel unusually sad or worried. ??? You feel nauseous or you vomit. ??? You pass large blood clots from your vagina. If you pass a blood clot from your vagina, save it to show to your health care provider. Do not flush blood clots down the toilet without having your health care provider look at them. ??? You urinate more than usual. ??? You are dizzy or light-headed. ??? You have not breastfed at all and you have not had a menstrual period for 12 weeks after delivery. ??? You have stopped and you have not had a menstrual period for 12 weeks after you stopped . Get help right away if: ??? You have: ? Pain that does not go away or does not get better with medicine. ? Chest pain. ? Difficulty breathing. ? Blurred vision or spots in your vision. ? Thoughts about hurting yourself or your baby. ??? You develop pain in your abdomen or in one of your legs. ??? You develop a severe headache. ??? You faint. ??? You bleed from your vagina so much that you fill two sanitary pads in one hour. This information is not intended to replace advice given to you by your health care provider. Make sure you discuss any questions you have with your health care provider. Document Released: 01/24/2001 Document Revised: 07/10/2016 Document Reviewed: 02/11/2016 [employer] Interactive Patient Education ? 2019 [employer]. Electronically signed by Nataliya Beckett [employer]version [employer] Tanker Truck Driver Cerner at 05/29/2022 8:27 AM CDT documented in this encounter Plan of Treatment Not on file documented as of this encounter Visit Diagnoses Not on filedocumented in this encounter
--- OUTSIDE RECORDS SUMMARY | 2024-07-21 12:47 | XMS_ITS | Encounter Summary ---
Author Organization [facility] Address [address] [place] [id number] Care Team Providers Care Parking Control Officer Name Role Phone Unavailable Primary Care Provider Unavailabl e Encounter Details Date Type Department Care Team (Late st Contact Info) Description 02/09/2019 Transcribed Document [facility] [place] Family Medicine [address] [place] [address] ProviderKimberly MD [address] [place] [address] Social History Tobacco Use Types Packs/Day Years Used Date Smoking Tobacco: Never Assessed Comments Unknown Sex and Gender Information Value Date Recorded Sex Assigned at Not on file Legal Sex Female 1:09 PM CDT Gender Identity Not on file Sexual Orientation Not on file documented as of this encounter Miscellaneous Notes * Cerner Conversion Note - Kimberly ProviderMD - 02/09/2019 1:23 AM FIFTH HAND Admission Data, OB Entered On: 02/09/2019 1:31 EST Performed On: 02/09/2019 1:23 EST by Miracle Contreras RN Advance Directive Patient has Advance Directive *Q : No, patient refuses Advance Directive information Miracle Contreras RN - 02/09/2019 1:23 EST Height and Weight Height Source : Stated Height Entry Format : [place] Height, Feet : 5 ft(Converted to: 152 cm, 60 Inch) Clinical Height : 154.94 cm Height, Inches : 1 Inch(Converted to: 0 ft 1 Inch, 2.54 cm) Weight Source : Standing scale Weight Entry Format : [place] Weight, Pounds : 152 lb Clinical Dosing Weight : 69.09 kg Body Surface Area (BSA) : 1.68 m2 Body Mass Index : 28.8 kg/m2 (HI) Carnation Body Weight (IBW) : 47.45 kg Miracle Contreras RN - 02/09/2019 1:23 EST Health Histories Smoking Status : 5-9 cigarettes (between 1/4 to 1/2 pack)/day in last 30 days Smokeless Tobacco Status : Never Desires Tobacco Cessation Medication : No Reason for No Tobacco Cessation Medication : Refuses FDA approved medications Miracle Contreras RN - 02/09/2019 1:23 EST Social History (As Of: 02/09/2019 01:31:33 EST) Tetanus Immunization Status Previous Tetanus Immunizations : No qualifying data available. Tetanus Immunization : Less than 5 years Miracle Contreras RN - 02/09/2019 1:23 EST Influenza Vaccine Asmt, Adult Previous Vaccines from Immunization Schedule : No qualifying data available. Influenza Immunization, Current Season : Yes Miracle Contreras RN - 02/09/2019 1:23 EST Pneumococcal Vaccine Previous Vaccines from Immunization Schedule : No qualifying data available. Pneumonia Immunization Received : Yes Miracle Contreras RN - 02/09/2019 1:23 EST Order Details Transport Mode Order Detail : Ambulatory Isolation Precautions Order Detail : Standard Precautions Order Detail : 1 IV Order Detail : 1 Oxygen Order Detail : 1 Nurse Collect Order Detail : 0 Lift/Transfer : Independent Central Line Order Detail : No Room Service : Appropriate Arterial Line : No Miracle Contreras RN - 02/09/2019 1:23 EST Vital Measurements Temperature Source : Oral Temperature Mode : Fahrenheit Temperature, Fahrenheit : 97.7 Deg F Clinical Temperature, C : 36.5 Deg C Pulse Method : Non-Invasive BP Device Heart Rate, Apical : 104 bpm (HI) Pulse Rhythm : Regular Respiratory Rate : 16 Breaths/Min Blood Pressure Location : Arm, left upper Systolic Blood Pressure : 132 mmHg Diastolic Blood Pressure : 79 mmHg Miracle Contreras RN - 02/09/2019 1:23 EST Infectious Disease History Infectious Disease History : None Fever/Chills Last 48 Hours : No Travel To Regions with Travel Advisories : No Travel Outside [place] Within Last 30 Days : No Contact With Traveler to Advisory Region : No Tuberculosis Symptoms : None Miracle Contreras RN - 02/09/2019 1:23 EST [place] Suicide Severity Rating Scale (C-SSRS) CSSRS Past Month Wish to be : No CSSRS Past Month Suicidal Thoughts : No CSSRS Lifetime Suicide Behavior : Yes YES, was this within the past 3 months? : No Suicide Severity Rating Score : 3 Suicide Severity Rating : Moderate Suicide Comment : Pt used to cut herself as a teenager for attention. Miracle Contreras RN - 02/09/2019 1:23 EST Electronically signed by Nataliya Beckett Conversion Endless Track Vehicle Supervisor Cerner at 05/29/2022 8:43 AM CDT documented in this encounter Plan of Treatment Not on file documented as of this encounter Visit Diagnoses Not on filedocumented in this encounter
--- OUTSIDE RECORDS SUMMARY | 2024-07-21 12:47 | XMS_ITS | Encounter Summary ---
Author Organization [facility] Address [address] [place] [address] Care Team Providers Care Campaign Management Specialist Name Role Phone Unavailable Primary Care Provider Unavailabl e Encounter Details Date Type Department Care Team (Late st Contact Info) Description 02/09/2019 Transcribed Document [facility] [place] Family Medicine [address] [place] [address] ProviderKimberly MD [address] [place] [address] Social History Tobacco Use Types Packs/Day Years Used Date Smoking Tobacco: Never Assessed Comments Unknown Sex and Gender Information Value Date Recorded Sex Assigned at Not on file Legal Sex Female 1:09 PM CDT Gender Identity Not on file Sexual Orientation Not on file documented as of this encounter Miscellaneous Notes * Cerner Conversion Note - Kimberly ProviderMD - 02/09/2019 2:00 PM EDUCATIONAL RESOURCE CENTER TEACHER Patient: COBY MERCADO Age: 18 years Sex: Female : 2000 Associated Diagnoses: None Author: KEVIN FRAZIER MD-VIAL GAUGER Pt progressed to complete at 38+ weeks induced due to decreased AF, GDM, extensive tobacco use. Pt delivered over intact perineum, direct OA Tight nuchal reduced No shoulder Minimal fluid when AROM performed Suction on perineum No lacerations Spont intact placenta with 3 vessel cord. EBL 150cc Apgars 7/9 per nursing present Mom and baby stable PP documented in this encounter Plan of Treatment Not on file documented as of this encounter Visit Diagnoses Not on filedocumented in this encounter
--- OUTSIDE RECORDS SUMMARY | 2024-07-21 12:47 | XMS_ITS | Encounter Summary ---
Author Organization [facility] Address [address] [place] [address] Care Team Providers Care Senior Commercial Loan Officer Name Role Phone Unavailable Primary Care Provider Unavailabl e Encounter Details Date Type Department Care Team (Late st Contact Info) Description 02/09/2019 Transcribed Document [facility] [place] Family Medicine [address] [place] [address] ProviderKimberly MD [address] [place] [address] Social History Tobacco Use Types Packs/Day Years Used Date Smoking Tobacco: Never Assessed Comments Unknown Sex and Gender Information Value Date Recorded Sex Assigned at Not on file Legal Sex Female 1:09 PM CDT Gender Identity Not on file Sexual Orientation Not on file documented as of this encounter Miscellaneous Notes * Cerner Conversion Note - Kimberly ProviderMD - 02/09/2019 9:06 AM PSYCHIATRIC SPECIALIST Patient: COBY MERCADO Age: 18 years Sex: Female : 2000 Associated Diagnoses: None Author: KEVIN FRAZIER MD-CHIEF QUALITY OFFICER Doing well VSS afeb Tracing cat 1 CVX 1-2/50/-1 AROM clear Titrate pitocin Epidural if requests documented in this encounter Plan of Treatment Not on file documented as of this encounter Visit Diagnoses Not on filedocumented in this encounter
--- OUTSIDE RECORDS SUMMARY | 2024-07-21 12:47 | XMS_ITS | Encounter Summary ---
Author Organization [facility] Address [address] [place] [address] Care Team Providers Care Director Search Marketing Strategies Name Role Phone Unavailable Primary Care Provider Unavailabl e Encounter Details Date Type Department Care Team (Late st Contact Info) Description 02/12/2019 Transcribed Document [facility] [place] Family Medicine [address] [place] [address] ProviderKimberly MD [address] [place] [id number] Social History Tobacco Use Types Packs/Day Years Used Date Smoking Tobacco: Never Assessed Comments Unknown Sex and Gender Information Value Date Recorded Sex Assigned at Not on file Legal Sex Female 1:09 PM CDT Gender Identity Not on file Sexual Orientation Not on file documented as of this encounter Miscellaneous Notes * Cerner Conversion Note - Kimberly ProviderMD - 02/12/2019 3:34 PM BELT LOOP CUTTER UM Authorization Entered On: 02/12/2019 15:34 EST Performed On: 02/12/2019 15:34 EST by NAZ FIGUEROA RN-Utilization Review Primary Insurance Authorization Authorization and Policy Numbers : Insurance 1 Health Plan: [employer] Policy Number: [id number] Authorization Number: Insurance Primary Name : [facility] Policy Number: [id number] Authorization Status-Primary : Admit approved Reference Number-Primary : [id number] Authorization Number-Primary : [id number] Number of Days Authorized-Primary : 1 Day(s) Authorized Service Begin Date-Primary : 02/09/2019 EST Authorized Service End Date-Primary : 2019 EST Authorization Comments-Primary : Per fax back, admit approved for 2 days with auth #[id number] given. Historical Authorization Comments-Primary : Comment 1: Contiuing stay clinicals faced. Per faxed notice approved x 1 day. (Arlene Arriola, Rn-Utilization Review 02/11/2019 15:20) Comment 2: Auth initiated online, Delivery summary faxed with clinicals for indication IOL prior to 39 weeks (Arlene Arriola, Rn-Utilization Review 02/09/2019 15:35) NAZ FIGUEROA RN-Utilization Review - 02/12/2019 15:34 EST Electronically signed by [facility], [facility] Conversion Construction Supervisor Cerner at 05/29/2022 8:16 AM CDT documented in this encounter Plan of Treatment Not on file documented as of this encounter Visit Diagnoses Not on filedocumented in this encounter
--- OUTSIDE RECORDS SUMMARY | 2024-07-21 12:47 | XMS_ITS | Encounter Summary ---
Author Organization [facility] [employer] [facility] Address [address] [place] [address] Care Team Providers Care Tensile Tester Name Role Phone Unavailable Primary Care Provider Unavailabl e Encounter Details Date Type Department Care Team (Late st Contact Info) Description 12/30/2018 Transcribed Document [facility] [place] [address] [place] [address] ProviderKimberly MD [address] [place] [address] Social History Tobacco Use Types Packs/Day Years Used Date Smoking Tobacco: Never Assessed Comments Unknown Sex and Gender Information Value Date Recorded Sex Assigned at Not on file Legal Sex Female 1:09 PM CDT Gender Identity Not on file Sexual Orientation Not on file documented as of this encounter Miscellaneous Notes * Cerner Conversion Note - Kimberly ProviderMD - 12/30/2018 2:17 PM RESIDENTIAL APPRAISER Nursing Discharge Summary Entered On: 12/30/2018 14:18 EST Performed On: 12/30/2018 14:17 EST by Molly Prasad RN Discharge Documentation Discharge Date/Time : 12/30/2018 14:18 EST Patient Disposition, General : Discharge Discharge To : Home with ambulatory/outpatient follow-up Name of Receiving Facility/Provider : Dr. Reina on Friday Mode Of Departure, General Discharge : Ambulatory Accompanied By, Discharge : Spouse IV Discontinued : Not applicable Medications Given to Patient : No Personal Belongings With Patient : Yes Pt's Own Supply of Medications Returned : Yes Prescriptions Given to Patient : Yes Discharge Instructions Reviewed With, Opportunity For Questions Given : Patient, Significant other Patient Education Completed : Yes Number of Prescriptions Given : 1 Teaching Method : Demonstration, Explanation, Printed materials, Teach back method Teaching Evaluation : Returns demonstration, Verbalizes understanding Molly Prasad RN - 12/30/2018 14:17 EST documented in this encounter Plan of Treatment Not on file documented as of this encounter Visit Diagnoses Not on filedocumented in this encounter
--- OUTSIDE RECORDS SUMMARY | 2024-07-21 12:47 | XMS_ITS | Encounter Summary ---
Author Organization [facility] Address [address] [place] [address] Care Team Providers Care Sales Coordinator Name Role Phone Unavailable Primary Care Provider Unavailabl e Encounter Details Date Type Department Care Team (Late st Contact Info) Description 02/11/2019 Transcribed Document [facility] [place] Family Medicine [address] [place] [address] ProviderKimberly MD [address], [place] [id number] Social History Tobacco Use Types Packs/Day Years Used Date Smoking Tobacco: Never Assessed Comments Unknown Sex and Gender Information Value Date Recorded Sex Assigned at Not on file Legal Sex Female 1:09 PM CDT Gender Identity Not on file Sexual Orientation Not on file documented as of this encounter Miscellaneous Notes * Cerner Conversion Note - Kimberly ProviderMD - 02/11/2019 3:20 PM COMMODITY LEAD UM Authorization Entered On: 02/11/2019 15:21 EST Performed On: 02/11/2019 15:20 EST by Arlene Arriola Rn-Utilization Review Primary Insurance Authorization Authorization and Policy Numbers : Insurance 1 Health Plan: [employer] Policy Number: [id number] Authorization Number: Insurance Primary Name : [facility] Policy Number: [id number] Authorization Status-Primary : Awaiting callback Reference Number-Primary : [id number] Number of Days Authorized-Primary : 0 Day(s) Authorized Service Begin Date-Primary : 02/09/2019 EST Authorized Service End Date-Primary : 02/09/2019 EST Authorization Comments-Primary : Contiuing stay clinicals faced. Per faxed notice approved x 1 day. Historical Authorization Comments-Primary : Comment 1: Auth initiated online, Delivery summary faxed with clinicals for indication IOL prior to 39 weeks (Arriola, Arlene, Rn-Utilization Review 02/09/2019 15:35) Arlene Arriola Rn-Utilization Review - 02/11/2019 15:20 EST Electronically signed by [facility] Conversion Microfilm Equipment Inspector Cerner at 05/29/2022 8:42 AM CDT documented in this encounter Plan of Treatment Not on file documented as of this encounter Visit Diagnoses Not on filedocumented in this encounter
--- OUTSIDE RECORDS SUMMARY | 2024-07-21 12:47 | XMS_ITS | Encounter Summary ---
Author Organization [facility] In [facility] Address [address] [place] [address] Care Team Providers Care Orthotics Prosthetics Assistant Name Role Phone Unavailable Primary Care Provider Unavailabl e Encounter Details Date Type Department Care Team (Late st Contact Info) Description 02/13/2019 Transcribed Document [facility] [place] [address] [place] [address] ProviderKimberly MD [address] [place] [address] Social History Tobacco Use Types Packs/Day Years Used Date Smoking Tobacco: Never Assessed Comments Unknown Sex and Gender Information Value Date Recorded Sex Assigned at Not on file Legal Sex Female 1:09 PM CDT Gender Identity Not on file Sexual Orientation Not on file documented as of this encounter Miscellaneous Notes * Cerner Conversion Note - Kimberly ProviderMD - 02/13/2019 11:13 PM BAND TEACHER Admission Data, OB Entered On: 02/13/2019 23:14 EST Performed On: 02/13/2019 23:13 EST by CHARLI RILEY RN Advance Directive Patient has Advance Directive *Q : No, patient refuses Advance Directive information CHARLI RILEY RN - 02/13/2019 23:13 EST Height and Weight Height Source : Stated Height Entry Format : [place] Height, Feet : 5 ft(Converted to: 152 cm, 60 Inch) Clinical Height : 162.56 cm Height, Inches : 4 Inch(Converted to: 0 ft 4 Inch, 10.16 cm) Weight Source : Standing scale Weight Entry Format : [place] Weight, Pounds : 154 lb Clinical Dosing Weight : 70 kg Body Surface Area (BSA) : 1.75 m2 Body Mass Index : 26.5 kg/m2 (HI) [place] Body Weight (IBW) : 54.3 kg CHARLI RILEY RN - 02/13/2019 23:13 EST Health Histories Smoking Status : 10 or more cigarettes (1/2 pack or more)/day in last 30 days Smokeless Tobacco Status : Refused tobacco status screen Desires Tobacco Cessation Medication : No Reason for No Tobacco Cessation Medication : Refuses FDA approved medications CHARLI RILEY RN - 02/13/2019 23:13 EST Social History (As Of: 02/13/2019 23:14:59 EST) Tetanus Immunization Status Previous Tetanus Immunizations : No qualifying data available. Tetanus Immunization : Less than 5 years CHARLI RILEY RN - 02/13/2019 23:13 EST Influenza Vaccine Asmt, Adult Previous Vaccines from Immunization Schedule : No qualifying data available. Influenza Immunization, Current Season : Yes CHARLI RILEY RN - 02/13/2019 23:13 EST Pneumococcal Vaccine Previous Vaccines from Immunization Schedule : No qualifying data available. Pneumonia Immunization Received : No Pneumococcal Risk Assessment < Age 65 : None CHARLI RILEY RN - 02/13/2019 23:13 EST Order Details Transport Mode Order Detail : Ambulatory Isolation Precautions Order Detail : Standard Precautions Order Detail : 0 IV Order Detail : 0 Nurse Collect Order Detail : 1 Lift/Transfer : Independent Central Line Order Detail : No Room Service : Appropriate Arterial Line : No CHARLI RILEY RN - 02/13/2019 23:13 EST Vital Measurements Temperature Source : Oral Temperature Mode : Fahrenheit Temperature, Fahrenheit : 98.2 Deg F Clinical Temperature, C : 36.8 Deg C Heart Rate, Apical : 72 bpm Pulse Rhythm : Regular Respiratory Rate : 18 Breaths/Min Systolic Blood Pressure : 140 mmHg Diastolic Blood Pressure : 68 mmHg CHARLI RILEY RN - 02/13/2019 23:13 EST Infectious Disease History Infectious Disease History : None CHARLI RILEY RN - 02/13/2019 23:13 EST [place] Suicide Severity Rating Scale (C-SSRS) CSSRS Past Month Wish to be : No CSSRS Past Month Suicidal Thoughts : No CSSRS Lifetime Suicide Behavior : No Suicide Severity Rating Score : 0 Suicide Severity Rating : No Additional Care Required at this time CHARLI RILEY RN - 02/13/2019 23:13 EST Electronically signed by Nataliya Beckett Conversion Coil Winding Machines Set Up Mechanic Cerner at 05/29/2022 8:17 AM CDT documented in this encounter Plan of Treatment Not on file documented as of this encounter Visit Diagnoses Not on filedocumented in this encounter
--- OUTSIDE RECORDS SUMMARY | 2024-07-21 12:47 | XMS_ITS | Encounter Summary ---
Author Organization [facility] Address [address] [place] [address] Care Team Providers Care Glass Handler Name Role Phone Unavailable Primary Care Provider Unavailabl e Encounter Details Date Type Department Care Team (Late st Contact Info) Description 02/13/2019 Transcribed Document [facility] [place] [address] [place] [address] ProviderKimberly MD [address] [place] [address] Social History Tobacco Use Types Packs/Day Years Used Date Smoking Tobacco: Never Assessed Comments Unknown Sex and Gender Information Value Date Recorded Sex Assigned at Not on file Legal Sex Female 1:09 PM CDT Gender Identity Not on file Sexual Orientation Not on file documented as of this encounter Miscellaneous Notes * Cerner Conversion Note - Kimberly Norton MD - 02/13/2019 11:38 PM CREATIVE DESIGNER [address] [address] COBY MERCADO :2000 Visit Time:02/13/2019 Your Visit Summary Your Care Team Admitting Physician - KEVIN FRAZIER MD-WELL DRILL OPERATOR Attending Physician - KEVIN FRAZIER MD-WELL DRILL OPERATOR Primary Care Physician - JOYCE, NONE Referring Physician - KEVIN FRAZIER MD-WELL DRILL OPERATOR Your Diagnosis Complex fourth degree hemorrhoid Discharge Vitals Temperature 36.8 ??C Heart Rate 72 Respiratory Rate 18 Blood Pressure 140/68 What to do next Instructions From Your Care Team Discharge Activity: Discharge Activity: Activity as tolerated Diet: Discharge Diet: Resume usual diet as tolerated Follow-Up Appointments Follow Up with Follow up with primary care provider When Within 2 to 3 days Medications What How Much When Instructions Next Dose ferrous sulfate multivitamin, ( Multivitamins oral tablet) Take your medications faithfully. Do NOT skip medication. Do NOT stop taking medications without the direction of a physician. Carry a list of your medications with you at all times, and take this medication list with you to your first follow up visit. Report any side effects. Avoid herbal remedies unless discussed with your physician. As part of your treatment plan, your physician may have prescribed a limited course of a controlled substance. This medication may be given to help people with moderate or severe pain or for other medical conditions, but there are risks involved with treatment. Common side effects may include nausea, constipation, drowsiness, sweating, itching, dry mouth, and rash. More serious side effects may include cognitive and motor impairment, like problems with thinking, concentrating, alertness, and movement (e.g. slowed reflexes), and driving and operating heavy machinery can be dangerous. It is important for you to talk to your physician if you have these side effects or questions. These controlled substances can produce physical dependence and be habit-forming if taken for an extended period of time, which means that the body has gotten used to them and may experience withdrawal symptoms if they are abruptly stopped. Withdrawal symptoms can include runny nose, sweating, goose bumps, diarrhea, abdominal cramping, rapid heartbeat, difficulty sleeping, and nervousness. Please dispose of unused and medications per your retail pharmacy guidance. Allergies No Known Allergies Immunizations This Visit No Immunizations Found Education Materials Breast Engorgement Breast engorgement is the overfilling of your breasts with breast milk. It is usually caused by delaying feedings, which can cause milk to build up. Breast engorgement can happen at any time while you are breast feeding, and is normal in the first 3???5 days after giving . The condition can make your breasts feel heavy, full, hard, tightly stretched, warm, and tender. Breast engorgement should improve within 24???48 hours of feeding your baby or expressing your milk. Follow these instructions at home: When to breastfeed or pump ??? Breastfeed when your baby shows signs of hunger. This is called on demand. ??? Breastfeed or use a breast pump to remove milk from your breasts when you feel the need to reduce the fullness of your breasts. ??? If your baby is younger than 1 month, make sure you are every 1???3 hours during the day. You may need to wake up your baby to feed if he or she is asleep at a feeding time. ??? Do not allow your baby to sleep longer than 5 hours during the night without a feeding. ??? Do not delay feedings. ??? If you are returning to work or are away from home for an extended period, try to pump your milk on the same schedule as when your baby would breastfeed. Before or pumping: ??? Increase the circulation in your breasts and help your milk flow. Try either of these methods: ? Taking a warm shower. ? Applying warm, water-soaked hand towels to your breasts. ? Massaging your breasts. ??? Pump or hand-express breast milk before to soften your breast, areola, and nipple. During or pumping: ??? Try to relax when it is time to feed your baby. This helps to trigger your let-down reflex, which releases milk from your breast. ??? Ensure your baby is latched on to your breast and positioned properly while . ??? Empty your breasts completely when or pumping. ??? Allow your baby to remain at your breast as long as he or she is latched on well and sucking. Your baby will let you know when he or she is done by pulling away from your breast or falling asleep. ??? Massage your breasts to help your milk flow. Managing pain and swelling ??? Take kbti-zxt-[id number] and prescription medicines only as told by your health care provider. ??? If directed, put ice on your breasts: ? Put ice in a plastic bag. ? Place a towel between your skin and the bag. ? Leave the ice on for 20 minutes, 2???3 times a day. ??? If you feel pain while , take your baby off your breast and try again. General instructions ??? After or pumping wear a snug bra or tank top for 1???2 days. This will signal your body to slightly decrease how much milk it makes. Once the engorgement passes, make sure you to wear a well-fitted, supportive bra and regular clothes. ??? Drink enough fluid to keep your urine clear or pale yellow. ??? Avoid introducing bottles or pacifiers to your baby in the early weeks of . Wait to introduce these things until after resolving any challenges. Contact a health care provider if: ??? Engorgement lasts longer than 2 days, even after treatment. ??? You have flu-like symptoms, such as a fever, chills, or body aches. ??? You have nausea or you vomit. ??? Your breasts become red and painful. ??? You have a lump in your breast. ??? Your nipples continue to crack or start to ooze. ??? There is yellow discharge coming from a nipple. ??? You have pain while , and it does not go away once you take your baby off your breast and try again. Get help right away if: ??? There is pus or blood in your breast milk. ??? You have sudden, severe symptoms. ??? You have red streaks near your breast. ??? Both breasts appear infected and you cannot breastfeed. Summary ??? Breast engorgement is the overfilling of your breasts with breast milk. It is usually caused by delayed feeding. ??? Although it is normal to experience breast engorgement 3???5 days after giving , it can happen at any time while . ??? Do not delay feedings. Breastfeed on demand to help prevent engorgement. ??? Increase the circulation in your breasts and help your milk flow before feeding your baby. You can do this by taking a warm shower, applying warm water-soaked hand towels, or massaging your breasts. This information is not intended to replace advice given to you by your health care provider. Make sure you discuss any questions you have with your health care provider. Document Released: 05/24/2005 Document Revised: 03/03/2017 Document Reviewed: 03/03/2017 Elsevier Interactive Patient Education ?? 2019 Else[employer] Inc. Hemorrhoids Hemorrhoids are swollen veins in and around the rectum or anus. Hemorrhoids can cause pain, itching, or bleeding. Most of the time, they do not cause serious problems. They usually get better with diet changes, lifestyle changes, and other home treatments. Follow these instructions at home: Eating and drinking ??? Eat foods that have fiber, such as whole grains, beans, nuts, fruits, and vegetables. Ask your doctor about taking products that have added fiber (fiber supplements). ??? Drink enough fluid to keep your pee (urine) clear or pale yellow. For Pain and Swelling ??? Take a warm-water bath (sitz bath) for 20 minutes to ease pain. Do this 3???4 times a day. ??? If directed, put ice on the painful area. It may be helpful to use ice between your warm baths. ? Put ice in a plastic bag. ? Place a towel between your skin and the bag. ? Leave the ice on for 20 minutes, 2???3 times a day. General instructions ??? Take wmaf-vzh-qgesibi and prescription medicines only as told by your doctor. ? Medicated creams and medicines that are inserted into the anus (suppositories) may be used or applied as told. ??? Exercise often. ??? Go to the bathroom when you have the urge to poop (to have a bowel movement). Do not wait. ??? Avoid pushing too hard (straining) when you poop. ??? Keep the butt area dry and clean. Use wet toilet paper or moist paper towels. ??? Do not sit on the toilet for a long time. Contact a doctor if: ??? You have any of these: ? Pain and swelling that do not get better with treatment or medicine. ? Bleeding that will not stop. ? Trouble pooping or you cannot poop. ? Pain or swelling outside the area of the hemorrhoids. This information is not intended to replace advice given to you by your health care provider. Make sure you discuss any questions you have with your health care provider. Document Released: 11/05/2008 Document Revised: 07/04/2016 Document Reviewed: 10/11/2015 [employer] Interactive Patient Education ?? 2019 [employer] Emergency Awareness and Preventative Care STROKE is an EMERGENCY Every Minute Counts Act FAST and Check for these signs: FACE Does the face look uneven? ARM Does one arm drift down? SPEECH Does their speech sound strange? TIME Call at any sign of stroke Stroke Risk Factors Atrial Fibrillation (irregular heartbeat) Diabetes Family history of stroke Heart Disease Heavy alcohol use High Blood Pressure High Cholesterol Physical inactivity and obesity Smoking Cigarette Smoking The facts are clear, cigarette smoking will shorten your life. Smoking can cause many illnesses along the way. As a healthcare provider, we recommend that you stop smoking. Assistance with quitting is available by contacting 1-052-UQRGNOW. This is a free resource providing counseling, support, and referral. Or you may contact your personal physician. [place] Suicide Prevention Lifeline: The National Suicide Prevention Lifeline is a national network of local crisis centers that provides free and confidential emotional support to people in suicidal crisis or emotional distress 24 hours a day, 7 days a week. Don't Wait! Stop a Heart Attack Before it Starts What is a heart attack? A heart attack is damage or to a part of the heart from severely decreased or lack of blood flow to the heart. Over time, arteries can become narrow from the buildup of fat and cholesterol, which is called plaque. The plaque can rupture causing a blood clot to form. When the blood clot forms, the artery can become severely narrowed or completely blocked, causing a heart attack. Heart attack is the leading cause of in the [place]. 85% of muscle damage occurs within the first 2 hours. Delay in the recognition of heart attack symptoms increases the chances of . Know the early symptoms of a heart attack: Nausea Feeling of fullness in chest Jaw Pain Pain that travels down one or both arms Fatigue/being tired Anxiety Back Pain Chest pressure, squeezing, or discomfort Shortness of breath Sweating, or a cold sweat Feeling of impending doom There are unusual signs of a heart attack, too! Women, the elderly, and diabetics may present with atypical symptoms: Fainting/dizziness Weakness Confusion Risk Factors for a Heart Attack Some heart disease risk factors, such as age and family history, cannot be changed. Others, like smoking and lack of exercise, can be changed. Smoking High Cholesterol High Blood Pressure Family History Obesity Age Gender (Males are at higher risk) Lack of Exercise Diabetes Diet Stress Excessive Alcohol Intake If you or someone you know is experiencing the signs and symptoms of a heart attack, DON???T DELAY. Call immediately and seek help. If someone collapses, perform CPR! Do not attempt to drive if you are having symptoms of heart attack. Hands-Only CPR Why Hands-Only CPR? Hands-Only CPR has been shown to be as effective as conventional CPR for cardiac arrests that occur outside of a hospital. Survival depends on immediately receiving CPR from someone nearby. How do you perform Hands-Only CPR? There are two easy steps: Call 9-1-1 if you see a teen or adult collapse Push hard and fast in the center of the chest at a beat of 100 beats per minute. Save a life! 4 WAYS TO GET AHEAD OF SEPSIS SEPSIS is a MEDICAL EMERGENCY. Time matters! Infections put you and your family at risk for a life-threatening condition called sepsis. Sepsis is the body's extreme response to an infection. It is life-threatening, and without timely treatment, sepsis can rapidly lead to tissue damage, organ failure, and . Sepsis happens when an infection you already have-in your skin, lungs, urinary tract or somewhere else-triggers a chain reaction throughout your body. 1 PREVENT INFECTIONS Take good care of chronic conditions. Talk to your doctor about getting the recommended vaccines. 2 PRACTICE GOOD HYGIENE Wash your hands frequently. Keep cuts or open sores clean and covered until they are healed. 3 KNOW THE SYMPTOMS Confusion or disorientation Shortness of breath High heart rate Fever, shivering, or feeling very cold Extreme pain or discomfort Clammy or sweaty skin 4 ACT FAST Get medical care IMMEDIATELY if you suspect sepsis or if you have an infection that is not getting better or is getting worse. To learn more about sepsis and how to prevent infections, visit www.cdc.gov/sepsis. Test Results Laboratory or Other Results This Visit (last charted value for your 02/13/2019 visit) No Laboratory or Other Results This Visit Patient Name:COBY MERCADO I have received and understand this information and was given the opportunity to ask questions. Patient/Material Handling Warehouse Supervisor Name: Patient/Material Handling Warehouse Supervisor Signature: Relationship to Patient: Clinician/Hospital Material Handling Warehouse Supervisor Signature: Date: Electronically signed by Interface, [facility] Conversion Caramel Cutter Hand Jackson at 05/29/2022 8:19 AM CDT documented in this encounter Plan of Treatment Not on file documented as of this encounter Visit Diagnoses Not on filedocumented in this encounter
--- OUTSIDE RECORDS SUMMARY | 2024-07-21 12:47 | XMS_ITS | Encounter Summary ---
Author Organization [facility] Address [address] [place] [id number] Care Team Providers Care Speech Communication Instructor Name Role Phone Unavailable Primary Care Provider Unavailabl e Encounter Details Date Type Department Care Team (Late st Contact Info) Description 02/09/2019 Transcribed Document [facility] [place] Family Medicine [address] [place] [address] ProviderKimberly MD [address], [place] [id number] Social History Tobacco Use Types Packs/Day Years Used Date Smoking Tobacco: Never Assessed Comments Unknown Sex and Gender Information Value Date Recorded Sex Assigned at Not on file Legal Sex Female 1:09 PM CDT Gender Identity Not on file Sexual Orientation Not on file documented as of this encounter Miscellaneous Notes * Cerner Conversion Note - Kimberly ProviderMD - 02/09/2019 3:35 PM RECRUITING SPECIALIST [facility] Authorization Entered On: 02/09/2019 15:36 EST Performed On: 02/09/2019 15:35 EST by Arlene Arriola Rn-Utilization Review Primary Insurance Authorization Authorization and Policy Numbers : Insurance 1 Health Plan: [employer] Policy Number: [id number] Authorization Number: Insurance Primary [facility] Policy Number: [id number] Authorization Status-Primary : Awaiting callback Reference Number-Primary : [id number] Authorized Service Begin Date-Primary : 02/09/2019 EST Authorization Comments-Primary : Auth initiated online, Delivery summary faxed with clinicals for indication IOL prior to 39 weeks Historical Authorization Comments-Primary : No Authorization Comments Found Arlene Arriola Rn-Utilization Review - 02/09/2019 15:35 EST documented in this encounter Plan of Treatment Not on file documented as of this encounter Visit Diagnoses Not on filedocumented in this encounter
--- OUTSIDE RECORDS SUMMARY | 2024-07-21 12:48 | XMS_ITS | Encounter Summary ---
Author Organization [facility] [employer] Address [address] [place] [id number] Care Team Providers Care Quality Review Trainer Name Role Phone Unavailable Primary Care Provider Unavailabl e Encounter Details Date Type Department Care Team (Late st Contact Info) Description 12/30/2018 Transcribed Document [facility] [place] [address] [place] [address] ProviderKimberly MD [address] [place] [address] Social History Tobacco Use Types Packs/Day Years Used Date Smoking Tobacco: Never Assessed Comments Unknown Sex and Gender Information Value Date Recorded Sex Assigned at Not on file Legal Sex Female 1:09 PM CDT Gender Identity Not on file Sexual Orientation Not on file documented as of this encounter Miscellaneous Notes * Cerner Conversion Note - Kimberly ProviderMD - 12/30/2018 1:38 PM 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 Admission Data, OB Entered On: 12/30/2018 13:40 EST Performed On: 12/30/2018 13:38 EST by Estefani Vinson RN Advance Directive Patient has Advance Directive *Q : No, patient refuses Advance Directive information Estefani Vinson RN - 12/30/2018 13:38 EST Height and Weight Height Source : Measured Height Entry Format : [place] Height, Feet : 5 ft(Converted to: 152 cm, 60 Inch) Clinical Height : 154.94 cm Height, Inches : 1 Inch(Converted to: 0 ft 1 Inch, 2.54 cm) Weight Source : Standing scale Weight Entry Format : [place] Weight, Pounds : 142 lb Clinical Dosing Weight : 64.55 kg Body Surface Area (BSA) : 1.63 m2 Body Mass Index : 26.9 kg/m2 (HI) [place] Body Weight (IBW) : 47.45 kg Estefani Vinson RN - 12/30/2018 13:38 EST Health Histories Smoking Status : 5-9 cigarettes (between 1/4 to 1/2 pack)/day in last 30 days Smokeless Tobacco Status : Never Desires Tobacco Cessation Medication : No Reason for No Tobacco Cessation Medication : Refuses FDA approved medications Estefani Vinson RN - 12/30/2018 13:38 EST Social History (As Of: 12/30/2018 13:40:25 EST) Gestational Age Gestational Age Person Gestational Age At : 32 weeks 3 days Method : Comment : Tetanus Immunization Status Previous Tetanus Immunizations : No qualifying data available. Tetanus Immunization : Less than 5 years Estefani Vinson RN - 12/30/2018 13:38 EST Influenza Vaccine Asmt, Adult Previous Vaccines from Immunization Schedule : No qualifying data available. Influenza Immunization, Current Season : No Inactivated Flu Vaccine Contraindications : No contraindications to inactivated influenza vaccine Transplant Workup/Recent Transplant : No Order for Influenza Vaccine : Declined Vaccination Estefani Vinson RN - 12/30/2018 13:38 EST Pneumococcal Vaccine Previous Vaccines from Immunization Schedule : No qualifying data available. Pneumonia Immunization Received : No Pneumococcal Risk Assessment < Age 65 : None Estefani Vinson RN - 12/30/2018 13:38 EST Order Details Transport Mode Order Detail : Ambulatory Isolation Precautions Order Detail : Standard Precautions Order Detail : 1 IV Order Detail : 0 Oxygen Order Detail : 0 Nurse Collect Order Detail : 1 Lift/Transfer : Independent Central Line Order Detail : No Room Service : Appropriate Arterial Line : No Estefani Vinson RN - 12/30/2018 13:38 EST Vital Measurements Temperature Source : Oral Temperature Mode : Fahrenheit Temperature, Fahrenheit : 98.3 Deg F Clinical Temperature, C : 36.8 Deg C Pulse Method : Non-Invasive BP Device Pulse Source : Brachial, Left Peripheral Pulse Rate : 96 bpm Pulse Rhythm : Regular Respiratory Rate : 18 Breaths/Min Blood Pressure Location : Arm, left upper Blood Pressure Source : Non-Invasive BP Device Blood Pressure Position : Sitting Systolic Blood Pressure : 116 mmHg Diastolic Blood Pressure : 78 mmHg Estefani Vinson RN - 12/30/2018 13:38 EST Infectious Disease History Infectious Disease History : None Fever/Chills Last 48 Hours : No Travel To Regions with Travel Advisories : No Travel Outside [place] Within Last 30 Days : No Contact With Traveler to Advisory Region : No Tuberculosis Symptoms : None Estefani Vinson RN - 12/30/2018 13:38 EST [place] Suicide Severity Rating Scale (C-SSRS) CSSRS Past Month Wish to be : No CSSRS Past Month Suicidal Thoughts : No CSSRS Lifetime Suicide Behavior : No Suicide Severity Rating Score : 0 Suicide Severity Rating : No Additional Care Required at this time Estefani Vinson RN - 12/30/2018 13:38 EST documented in this encounter Plan of Treatment Not on file documented as of this encounter Visit Diagnoses Not on filedocumented in this encounter
--- OUTSIDE RECORDS SUMMARY | 2024-07-21 12:48 | XMS_ITS | Encounter Summary ---
Author Organization [facility] Address [address] [place] [address] Care Team Providers Care Superintendent Commissary Name Role Phone Unavailable Primary Care Provider Unavailabl e Encounter Details Date Type Department Care Team (Late st Contact Info) Description 12/30/2018 Transcribed Document [facility] [place] [facility] [address] [place] [address] ProviderKimberly MD [address] [place] [address] Social History Tobacco Use Types Packs/Day Years Used Date Smoking Tobacco: Never Assessed Comments Unknown Sex and Gender Information Value Date Recorded Sex Assigned at Not on file Legal Sex Female 1:09 PM CDT Gender Identity Not on file Sexual Orientation Not on file documented as of this encounter Miscellaneous Notes * Cerner Conversion Note - Kimberly Norton MD - 12/30/2018 2:24 PM HANSARD REPORTER Patient Education Materials Follows: Iron-Rich Diet Iron is a mineral that helps your body to produce hemoglobin. Hemoglobin is a protein in your red blood cells that carries oxygen to your body's tissues. Eating too little iron may cause you to feel weak and tired, and it can increase your risk for infection. Eating enough iron is necessary for your body's metabolism, muscle function, and nervous system. Iron is naturally found in many foods. It can also be added to foods or fortified in foods. There are two types of dietary iron: ??? Heme iron. Heme iron is absorbed by the body more easily than nonheme iron. Heme iron is found in meat, poultry, and fish. ??? Nonheme iron. Nonheme iron is found in dietary supplements, iron-fortified grains, beans, and vegetables. You may need to follow an iron-rich diet if: ??? You have been diagnosed with iron deficiency or iron-deficiency anemia. ??? You have a condition that prevents you from absorbing dietary iron, such as: ? Infection in your intestines. ? Celiac disease. This involves long-lasting (chronic) inflammation of your intestines. ??? You do not eat enough iron. ??? You eat a diet that is high in foods that impair iron absorption. ??? You have lost a lot of blood. ??? You have heavy bleeding during your menstrual cycle. ??? You are . What is my plan? Your health care provider may help you to determine how much iron you need per day based on your condition. Generally, when a person consumes sufficient amounts of iron in the diet, the following iron needs are met: ??? Men. ? 14?18 years old: 11 mg per day. ? 19?50 years old: 8 mg per day. ??? Women. ? 14?18 years old: 15 mg per day. ? 19?50 years old: 18 mg per day. ? Over 50 years old: 8 mg per day. ? women: 27 mg per day. ? women: 9 mg per day. What do I need to know about an iron-rich diet? Eat fresh fruits and vegetables that are high in vitamin C along with foods that are high in iron. This will help increase the amount of iron that your body absorbs from food, especially with foods containing nonheme iron. Foods that are high in vitamin C include oranges, peppers, tomatoes, and santosh. ??? Take iron supplements only as directed by your health care provider. Overdose of iron can be life-threatening. If you were prescribed iron supplements, take them with orange juice or a vitamin C supplement. ??? Cook foods in pots and pans that are made from iron. ??? Eat nonheme iron-containing foods alongside foods that are high in heme iron. This helps to improve your iron absorption. ??? Certain foods and drinks contain compounds that impair iron absorption. Avoid eating these foods in the same meal as iron-rich foods or with iron supplements. These include: ? Coffee, black tea, and red wine. ? Milk, dairy products, and foods that are high in calcium. ? Beans, soybeans, and peas. ? Whole grains. ??? When eating foods that contain both nonheme iron and compounds that impair iron absorption, follow these tips to absorb iron better. ? Soak beans overnight before cooking. ? Soak whole grains overnight and drain them before using. ? Ferment flours before baking, such as using yeast in bread dough. What foods can I eat? Grains Iron-fortified breakfast cereal. Iron-fortified whole-wheat bread. Enriched rice. Sprouted grains. Vegetables Spinach. Potatoes with skin. Green peas. Broccoli. Red and green fernandes peppers. Fermented vegetables. Fruits Prunes. Raisins. Oranges. Strawberries. Santosh. Grapefruit. Meats and Other Protein Sources Beef liver. Oysters. Beef. Shrimp. [place]. Chicken. Tuna. Sardines. Chickpeas. Nuts. Tofu. Beverages Tomato juice. Fresh orange juice. Prune juice. Hibiscus tea. Fortified instant breakfast shakes. Condiments Tahini. Fermented soy sauce. Sweets and Desserts Black-strap molasses. Other Wheat germ. The items listed above may not be a complete list of recommended foods or beverages. Contact your dietitian for more options. What foods are not recommended? Grains Whole grains. Bran cereal. Bran flour. Oats. Vegetables Artichokes. [place] sprouts. Kale. Fruits Blueberries. Raspberries. Strawberries. Figs. Meats and Other Protein Sources Soybeans. Products made from soy protein. Dairy Milk. Cream. Cheese. Yogurt. Cottage cheese. Beverages Coffee. Black tea. Red wine. Sweets and Desserts [place]. Chocolate. Ice cream. Other Basil. Oregano. Parsley. The items listed above may not be a complete list of foods and beverages to avoid. Contact your dietitian for more information. This information is not intended to replace advice given to you by your health care provider. Make sure you discuss any questions you have with your health care provider. Document Released: 09/10/2005 Document Revised: 08/16/2016 Document Reviewed: 08/24/2014 [employer] Interactive Patient Education ? 2018 [employer] Third Trimester of The third trimester is from week 28 through week 40 (months 7 through 9). This trimester is when your unborn baby (fetus) is growing very fast. At the end of the ninth month, the unborn baby is about 20 inches in length. It weighs about 6?10 pounds. Follow these instructions at home: Medicines ??? Take ehdb-ayk-lueyhio and prescription medicines only as told by your doctor. Some medicines are safe and some medicines are not safe during . ??? Take a vitamin that contains at least 600 micrograms (mcg) of folic acid. ??? If you have trouble pooping (constipation), take medicine that will make your stool soft (stool softener) if your doctor approves. Eating and drinking ??? Eat regular, healthy meals. ??? Avoid raw meat and uncooked cheese. ??? If you get low calcium from the food you eat, talk to your doctor about taking a daily calcium supplement. ??? Eat four or five small meals rather than three large meals a day. ??? Avoid foods that are high in fat and sugars, such as fried and sweet foods. ??? To prevent constipation: ? Eat foods that are high in fiber, like fresh fruits and vegetables, whole grains, and beans. ? Drink enough fluids to keep your pee (urine) clear or pale yellow. Activity ??? Exercise only as told by your doctor. Stop exercising if you start to have cramps. ??? Avoid heavy lifting, wear low heels, and sit up straight. ??? Do not exercise if it is too hot, too humid, or if you are in a place of great height (high altitude). ??? You may continue to have sex unless your doctor tells you not to. Relieving pain and discomfort ??? Wear a good support bra if your breasts are tender. ??? Take frequent breaks and rest with your legs raised if you have leg cramps or low back pain. ??? Take warm water baths (sitz baths) to soothe pain or discomfort caused by hemorrhoids. Use hemorrhoid cream if your doctor approves. ??? If you develop puffy, bulging veins (varicose veins) in your legs: ? Wear support hose or compression stockings as told by your doctor. ? Raise (elevate) your feet for 15 minutes, 3?4 times a day. ? Limit salt in your food. Safety ??? Wear your seat belt when driving. ??? Make a list of emergency phone numbers, including numbers for family, friends, the hospital, and police and fire departments. Preparing for your baby's arrival To prepare for the arrival of your baby: ??? Take classes. ??? Practice driving to the hospital. ??? Visit the hospital and tour the maternity area. ??? Talk to your work about taking leave once the baby comes. ??? Pack your hospital bag. ??? Prepare the baby's room. ??? Go to your doctor visits. ??? Buy a rear-facing car seat. Learn how to install it in your car. General instructions ??? Do not use hot tubs, steam rooms, or saunas. ??? Do not use any products that contain nicotine or tobacco, such as cigarettes and e-cigarettes. If you need help quitting, ask your doctor. ??? Do not drink alcohol. ??? Do not douche or use tampons or scented sanitary pads. ??? Do not cross your legs for long periods of time. ??? Do not travel for long distances unless you must. Only do so if your doctor says it is okay. ??? Visit your dentist if you have not gone during your . Use a soft toothbrush to brush your teeth. Be gentle when you floss. ??? Avoid cat litter boxes and soil used by cats. These carry germs that can cause defects in the baby and can cause a loss of your baby (miscarriage) or stillbirth. ??? Keep all your visits as told by your doctor. This is important. Contact a doctor if: ??? You are not sure if you are in labor or if your water has broken. ??? You are dizzy. ??? You have mild cramps or pressure in your lower belly. ??? You have a nagging pain in your belly area. ??? You continue to feel sick to your stomach, you throw up, or you have watery poop. ??? You have bad smelling fluid coming from your vagina. ??? You have pain when you pee. Get help right away if: ??? You have a fever. ??? You are leaking fluid from your vagina. ??? You are spotting or bleeding from your vagina. ??? You have severe belly cramps or pain. ??? You lose or gain weight quickly. ??? You have trouble catching your breath and have chest pain. ??? You notice sudden or extreme puffiness (swelling) of your face, hands, ankles, feet, or legs. ??? You have not felt the baby move in over an hour. ??? You have severe headaches that do not go away with medicine. ??? You have trouble seeing. ??? You are leaking, or you are having a gush of fluid, from your vagina before you are 37 weeks. ??? You have regular belly spasms (contractions) before you are 37 weeks. Summary ??? The third trimester is from week 28 through week 40 (months 7 through 9). This time is when your unborn baby is growing very fast. ??? Follow your doctor's advice about medicine, food, and activity. ??? Get ready for the arrival of your baby by taking classes, getting all the baby items ready, preparing the baby's room, and visiting your doctor to be checked. ??? Get help right away if you are bleeding from your vagina, or you have chest pain and trouble catching your breath, or if you have not felt your baby move in over an hour. This information is not intended to replace advice given to you by your health care provider. Make sure you discuss any questions you have with your health care provider. Document Released: 04/23/2010 Document Revised: 03/04/2017 Document Reviewed: 03/04/2017 [employer] Interactive Patient Education ? 2019 [employer] Obstetrics and Gynecology Movement Counts Patient Name: Patient Due Date: What is a movement count? A movement count is the number of times that you feel your baby move during a certain amount of time. This may also be called a kick count. A movement count is recommended for every woman. You may be asked to start counting movements as early as week 28 of your . Pay attention to when your baby is most active. You may notice your baby's sleep and wake cycles. You may also notice things that make your baby move more. You should do a movement count: ??? When your baby is normally most active. ??? At the same time each day. A good time to count movements is while you are resting, after having something to eat and drink. How do I count movements? 1. Find a quiet, comfortable area. Sit, or lie down on your side. 2. Write down the date, the start time and stop time, and the number of movements that you felt between those two times. Take this information with you to your health care visits. 3. For 2 hours, count kicks, flutters, swishes, rolls, and jabs. You should feel at least 10 movements during 2 hours. 4. You may stop counting after you have felt 10 movements. 5. If you do not feel 10 movements in 2 hours, have something to eat and drink. Then, keep resting and counting for 1 hour. If you feel at least 4 movements during that hour, you may stop counting. Contact a health care provider if: ??? You feel fewer than 4 movements in 2 hours. ??? Your baby is not moving like he or she usually does. Date: Start time: Stop time: Movements: Date: Start time: Stop time: Movements: Date: Start time: Stop time: Movements: Date: Start time: Stop time: Movements: Date: Start time: Stop time: Movements: Date: Start time: Stop time: Movements: Date: Start time: Stop time: Movements: Date: Start time: Stop time: Movements: Date: Start time: Stop time: Movements: This information is not intended to replace advice given to you by your health care provider. Make sure you discuss any questions you have with your health care provider. Document Released: 02/26/2007 Document Revised: 09/25/2016 Document Reviewed: 03/07/2016 [employer] Interactive Patient Education ? 2019 [employer] documented in this encounter Plan of Treatment Not on file documented as of this encounter Visit Diagnoses Not on filedocumented in this encounter
--- OUTSIDE RECORDS SUMMARY | 2024-07-21 12:48 | XMS_ITS | Clinical Summary ---
Author Organization [facility] Address [address] 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 Role Phone Unavailable Primary Care Provider Unavailabl e Social History Tobacco Use Types Packs/Day Years Used Date Smoking Tobacco: Never Assessed Comments Unknown Sex and Gender Information Value Date Recorded Sex Assigned at Not on file Legal Sex Female 8:10 PM EDT Gender Identity Not on file Sexual Orientation Not on file Plan of Treatment Health Maintenance Due Date Last Done Comments [facility]-Depression Screening 1998 [facility]-/Child/Adol SDOH Screenings 1998 [facility]-Varicella Vaccines (1 of 2 - 13+ 2-dose series) 2011 HPV Vaccines (1 - 3-dose series) 2013 [facility]- SDOH Screenings 02/11/2016 [facility]-Adult SDOH Screenings 02/11/2016 [facility]-Hepatitis B Vaccines (1 of 3 - 19+ 3-dose series) 2017 [facility]-Pap Smear 2019 [id number]-80 Vaccine ( - 2023- season) 2023 [facility]-Influenza Vaccine (Season Ended) 2024 [facility]-DTaP,Tdap,and Td Vaccines (3 - Td or Tdap) 12/08/2024 12/08/2014, 09/13/2010 [facility]-Zoster Vaccines (1 of 2) 02/11/2048 [facility]-HIB Vaccines Aged Out No longer e ligible based on patient's age to complete this topic [facility]-Hepatitis A Vaccines Aged Out No longer eligible based on patient's age to complete this topic [facility]-IPV Vaccines Aged Out No longer e ligible based on patient's age to complete this topic [facility]-Pneumococcal Vaccine: Pediatrics (0 to 5 Years) and At-Risk Patients (6 to 49 Years) Aged Out No longer eligible b ased on patient's age to complete this topic [facility]-Rotavirus Vaccines Aged Out No lo nger eligible based on patient's age to complete this topic Insurance MEDICAID
--- OUTSIDE RECORDS SUMMARY | 2024-07-21 12:48 | XMS_ITS | Encounter Summary ---
Author Organization [facility] Address [address] [place] [address] Care Team Providers Care Aboriginal Education Worker Coordinator Name Role Phone Unavailable Primary Care Provider Unavailabl e Encounter Details Date Type Department Care Team (Late st Contact Info) Description 12/30/2018 Transcribed Document [facility] [place] Family Medicine [address] [place] [address] ProviderKimberly MD [address] [place] [address] Social History Tobacco Use Types Packs/Day Years Used Date Smoking Tobacco: Never Assessed Comments Unknown Sex and Gender Information Value Date Recorded Sex Assigned at Not on file Legal Sex Female 1:09 PM CDT Gender Identity Not on file Sexual Orientation Not on file documented as of this encounter Miscellaneous Notes * Cerner Conversion Note - Kimberly ProviderMD - 12/30/2018 2:24 PM 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 [address] [address] COBY [place]CADO :2000 Visit Time:12/30/2018 Your Visit Summary Your Care Team Admitting Physician - KEVIN FRAZIER MD-RADIOLOGY NURSE Attending Physician - KEVIN FRAZIER MD-RADIOLOGY NURSE Primary Care Physician - JAVIER COOK DR Referring Physician - KEVIN FRAZIER MD-RADIOLOGY NURSE Your Diagnosis 32 weeks gestation of Decreased movement, antepartum UTI in Discharge Vitals Temperature 36.8 ??C Respiratory Rate 18 Blood Pressure 116/78 What to do next Instructions From Your Care Team Diet after Discharge: Resume usual diet as tolerated Drink at least 8-10 glasses of water a day Do not drink any alcoholic beverages Blood Glucose Monitoring:_ _ Activity After Discharge:As tolerated,_,_,_ Lifting Restrictions:No lifting restrictions Weight Bearing Restrictions:Partial weight bearing Bedrest:_ Minimize Stair Climbing Discuss Exercise with your physician Driving after Discharge:May drive today May Return to Work: Showering Bathing:May Shower,_,_ Antepartum, Notify Provider of: More than 4 contractions in 1 hour Vaginal bleeding like a period Decreased baby movement Temperature greater than 101 degrees Fahrenheit Leaking fluid or water is broken Mental or mood changes Weight up more than 2 pounds a day or more than 5 pounds in a week When to go to the Emergency Room or call 911: Shortness of breath or chest pain Unable to reach provider Wound/Incision Care After Discharge: Keep operative site/wound site clean and dry Remove remaining steri-strips after 7-10 days Change dressing with dry dressing daily and as needed DO NOT change dressing, may reinforce as needed Medical Equipment for Home Use: Home Health Services: Community Services: Discharge Activity: Discharge Activity: Activity as tolerated Diet: Discharge Diet: Resume usual diet as tolerated Follow-Up Appointments Follow Up with KEVIN FRAZIER MD-RADIOLOGY NURSE When Within 2 to 3 days Where: [address] [place] [address]- Medications What How Much When Instructions Next Dose ferrous sulfate in the morning multivitamin, ( Multivitamins oral tablet) in the morning Take your medications faithfully. Do NOT skip [...] This Visit No Immunizations Found Education Materials Movement Counts Patient Name: Patient Due Date: [...] 02/26/2007 Document Revised: 09/25/2016 Document Reviewed: 03/07/2016 [employer] Interactive Patient Education ?? 2019 [employer] Iron-Rich Diet Iron is a mineral that [...] iron needs are met: ??? Men. ? 14???18 years old: 11 mg per day. ? 19???50 years old: 8 mg per day. ??? Women. ? 14???18 years old: 15 mg per day. ? 19???50 years old: 18 mg per day. ? [...] vitamin C include oranges, peppers, tomatoes, and marry. ??? Take iron supplements only as directed [...] Fermented vegetables. Fruits Prunes. Raisins. Oranges. Strawberries. [place]argito. Grapefruit. Meats and Other Protein Sources Beef liver. Oysters. Beef. Shrimp. [place]. Chicken. Tuna. Sardines. Chickpeas. Nuts. Tofu. Beverages [...] Bran cereal. Bran flour. Oats. Vegetables Artichokes. Lizella sprouts. Kale. Fruits Blueberries. Raspberries. Strawberries. Figs. Meats and Other Protein Sources Soybeans. Products made from soy protein. Dairy Milk. Cream. Cheese. Yogurt. Cottage cheese. Beverages Coffee. Black tea. Red wine. Sweets and Desserts Edgar. Chocolate. Ice cream. Other Basil. Oregano. Parsley. [...] 09/10/2005 Document Revised: 08/16/2016 Document Reviewed: 08/24/2014 [employer] Interactive Patient Education ?? 2018 Jimmy Fairly. Third Trimester of The third trimester is from week 28 through week 40 (months 7 through 9). This trimester is when your unborn baby (fetus) is growing very fast. At the end of the ninth month, the unborn baby is about 20 inches in length. It weighs about 6???10 pounds. Follow these instructions at home: Medicines ??? Take zazc-rln-rspkfas and prescription medicines only as told by [...] Raise (elevate) your feet for 15 minutes, 3???4 times a day. ? Limit salt in [...] 04/23/2010 Document Revised: 03/04/2017 Document Reviewed: 03/04/2017 [employer] Interactive Patient Education ?? 2019 Jimmy Fairly. nitrofurantoin (JASON RIVERA toin) Furadantin, Macrobid, Macrodantin What is the most important information I should know about nitrofurantoin? You should not take nitrofurantoin if you have severe kidney disease, urination problems, or a history of jaundice or liver problems caused by nitrofurantoin. Do not take nitrofurantoin during late (from 38 weeks through delivery). What is nitrofurantoin? Nitrofurantoin is an antibiotic that is used to treat urinary tract infections caused by bacteria. Nitrofurantoin may also be used for purposes not listed in this medication guide. What should I discuss with my healthcare provider before taking nitrofurantoin? You should not take nitrofurantoin if you are allergic to it, or if you have: ?? severe kidney disease; ?? urination problems (little or no urination); or ?? a history of jaundice or liver problems caused by taking nitrofurantoin. Do not take nitrofurantoin during late (from 38 weeks through delivery). Tell your doctor if you have ever had: ?? kidney disease; ?? anemia; ?? diabetes; ?? an electrolyte imbalance or vitamin B deficiency; ?? yhpgiur-8-ubggzeboh dehydrogenase (G6PD) deficiency; or ?? any type of debilitating disease. You should not breastfeed a baby younger than 1 month old while you are taking nitrofurantoin. Nitrofurantoin should not be given to a child younger than 1 month old. How should I take nitrofurantoin? Follow all directions on your prescription label and read all medication guides or instruction sheets. Use the medicine exactly as directed. Take nitrofurantoin with food, even if you take it at bedtime. Shake the oral suspension (liquid) before you measure a dose. Use the dosing syringe provided, or use a medicine dose-measuring device (not a kitchen spoon). You may need to keep taking nitrofurantoin for up to 7 days after lab tests show that the infection has cleared. Follow your doctor's instructions. Use this medicine for the full prescribed length of time, even if your symptoms quickly improve. Skipping doses can increase your risk of infection that is resistant to medication. Nitrofurantoin will not treat a viral infection such as the flu or a common cold. This medicine can affect the results of certain medical tests. Tell any doctor who treats you that you are using nitrofurantoin. If you use this medicine long-term, you may need frequent medical tests. Store at room temperature away from moisture, heat, and light. Do not freeze the liquid medicine, and keep the bottle tightly closed when not in use. Throw away any nitrofurantoin liquid that has not been used within 30 days. What happens if I miss a dose? Take the medicine as soon as you can, but skip the missed dose if it is almost time for your next dose. Do not take two doses at one time. What happens if I overdose? Seek emergency medical attention or call the Poison Help line at . Overdose can cause vomiting. What should I avoid while taking nitrofurantoin? Antibiotic medicines can cause diarrhea, which may be a sign of a new infection. If you have diarrhea that is watery or bloody, call your doctor before using anti-diarrhea medicine. Avoid taking an antacid that contains magnesium trisilicate, which could make it harder for your body to absorb nitrofurantoin. What are the possible side effects of nitrofurantoin? Get emergency medical help if you have signs of an allergic reaction (hives, difficult breathing, swelling in your face or throat) or a severe skin reaction (fever, sore throat, burning eyes, skin pain, red or purple skin rash with blistering and peeling). Call your doctor at once if you have: ?? severe stomach pain, diarrhea that is watery or bloody (even if it occurs months after your last dose); ?? vision problems; ?? fever, chills, cough, chest pain, trouble breathing; ?? numbness, tingling, or burning pain in your hands or feet; ?? severe pain behind your eyes; ?? pale skin, weakness; ?? joint pain or swelling with fever, swollen glands, and muscle aches; ?? pain, redness, or swelling in your lower jaw; ?? increased pressure inside the skull--severe headaches, ringing in your ears, dizziness, nausea, vision problems, pain behind your eyes; or ?? signs of liver or pancreas problems--upper stomach pain (that may spread to your back), nausea or vomiting, dark urine, yellowing of the skin or eyes. Side effects may be more likely in older adults. Common side effects may include: ?? headache, dizziness, drowsiness, weakness; ?? gas, indigestion, loss of appetite; ?? nausea, vomiting; ?? muscle or joint pain; ?? rash, itching; or ?? temporary hair loss. This is not a complete list of side effects and others may occur. Call your doctor for medical advice about side effects. You may report side effects to FDA at 4-715-FCX-6296. What other drugs will affect nitrofurantoin? Other drugs may affect nitrofurantoin, including prescription and lvma-osl-xiwidlu medicines, vitamins, and herbal products. Tell your doctor about all your current medicines and any medicine you start or stop using. Where can I get more information? Your pharmacist can provide more information about nitrofurantoin. Remember, keep this and all other medicines out of the reach of children, never share your medicines with others, and use this medication only for the indication prescribed. Every effort has been made to ensure that the information provided by [employer]. ('[employer]') is accurate, up-to-date, and complete, but no guarantee is made to that effect. Drug information contained herein may be time sensitive. [employer] information has been compiled for use by healthcare practitioners and consumers in the [place] and therefore [employer] does not warrant that uses outside of the [place] are appropriate, unless specifically indicated otherwise. [employer]'s drug information does not endorse drugs, diagnose patients or recommend therapy. [employer] drug information is an informational resource designed to assist licensed healthcare practitioners in caring for their patients and/or to serve consumers viewing this service as a supplement to, and not a substitute for, the expertise, skill, knowledge and judgment of healthcare practitioners. The absence of a warning for a given drug or drug combination in no way should be construed to indicate that the drug or drug combination is safe, effective or appropriate for any given patient. [facility] does not assume any responsibility for any aspect of healthcare administered with the aid of information [facility] provides. The information contained herein is not intended to cover all possible uses, directions, precautions, warnings, drug interactions, allergic reactions, or adverse effects. If you have questions about the drugs you are taking, check with your doctor, nurse or pharmacist. Copyright 8718-9825 [employer]. Version: 9.01. Revision Date: 08/10/2018. albuterol inhalation (al BYOO ter all) ProAir HFA, ProAir RespiClick, Proventil HFA, Ventolin HFA What is the most important information I should know about albuterol inhalation? Follow all directions on your medicine label and package. Tell each of your healthcare providers about all your medical conditions, allergies, and all medicines you use. What is albuterol inhalation? Albuterol inhalation is a bronchodilator that is used to treat or prevent bronchospasm in people with reversible obstructive airway disease. Albuterol is also used to prevent exercise-induced bronchospasm. Albuterol inhalation is for use in adults and children who are at least 4 years old. Albuterol inhalation may also be used for purposes not listed in this medication guide. What should I discuss with my healthcare provider before using albuterol inhalation? You should not use this medicine if you are allergic to albuterol. You should not use ProAir RespiClick if you are allergic to milk proteins. Albuterol inhalation is not approved for use by anyone younger than 4 years old. Albuterol may increase the risk of or hospitalization in people with asthma, but the risk in people with obstructive airway disease or chronic obstructive pulmonary disease (COPD) is not known. Tell your doctor if you have ever had: ?? heart disease, high blood pressure; ?? a thyroid disorder; ?? seizures; ?? diabetes; or ?? low levels of potassium in your blood. Tell your doctor if you are or breast-feeding. If you are , your name may be listed on a registry to track the effects of albuterol on the baby. How should I use albuterol inhalation? Follow all directions on your prescription label and read all medication guides. Use the medicine exactly as directed. Read and carefully follow any Instructions for Use provided with your medicine. Ask your doctor or pharmacist if you do not understand these instructions. Do not allow a young child to use albuterol inhalation without help from an adult. To prevent exercise-induced bronchospasm, use this medicine 15 to 30 minutes before you exercise. The effects of albuterol inhalation should last about 4 to 6 hours. Seek medical attention if your breathing problems get worse quickly, or if you think your asthma medications are not working as well. Do not try to clean or take apart the ProAir RespiClick inhaler device. Always use the new inhaler device provided with your refill. Do not float a medicine canister in water to see if it is empty. Your dose needs may change due to surgery, illness, stress, or a recent asthma attack. Do not change your dose or dosing schedule without your doctor's advice. Store at room temperature away from moisture, heat, or cold temperatures. Keep the cover on your ProAir RespiClick inhaler when not in use. Store Proventil or Ventolin with the mouthpiece down. Keep the inhaler canister away from open flame or high heat. The canister may explode if it gets too hot. Do not puncture or burn an empty inhaler canister. What happens if I miss a dose? Use the medicine as soon as you can, but skip the missed dose if it is almost time for your next dose. Do not use two doses at one time. Get your prescription refilled before you run out of medicine completely. What happens if I overdose? Seek emergency medical attention or call the Poison Help line at . An overdose of albuterol can be fatal. Overdose symptoms may include dry mouth, tremors, chest pain, fast heartbeats, nausea, general ill feeling, seizure (convulsions), feeling light-headed or fainting. What should I avoid while using albuterol inhalation? Rinse with water if this medicine gets in your eyes. What are the possible side effects of albuterol inhalation? Get emergency medical help if you have signs of an allergic reaction: hives; difficult breathing; swelling of your face, lips, tongue, or throat. Call your doctor at once if you have: ?? wheezing, choking, or other breathing problems after using this medicine; ?? chest pain, fast heart rate, pounding heartbeats or fluttering in your chest; ?? severe headache, pounding in your neck or ears; ?? pain or burning when you urinate; ?? high blood sugar--increased thirst, increased urination, dry mouth, fruity breath odor; or ?? low potassium--leg cramps, constipation, irregular heartbeats, increased thirst or urination, numbness or tingling, muscle weakness or limp feeling. Common side effects may include: ?? chest pain, fast or pounding heartbeats; ?? dizziness; ?? feeling shaky or nervous; ?? headache, back pain, body aches; ?? upset stomach; or ?? sore throat, sinus pain, runny or stuffy nose. This is not a complete list of side effects and others may occur. Call your doctor for medical advice about side effects. You may report side effects to FDA at 8-679-AIM-8958. What other drugs will affect albuterol inhalation? Tell your doctor about all your other medicines, especially: ?? any other inhaled medicines or bronchodilators; ?? digoxin; ?? a diuretic or 'water pill'; ?? an antidepressant--amitriptyline, desipramine, imipramine, doxepin, nortriptyline, and others; ?? a beta glory--atenolol, carvedilol, labetalol, metoprolol, propranolol, sotalol, and others; or ?? an MAO inhibitor--isocarboxazid, linezolid, methylene blue injection, phenelzine, rasagiline, selegiline, tranylcypromine, and others. This list is not complete. Other drugs may affect albuterol inhalation, including prescription and kkhe-fzh-capyzye medicines, vitamins, and herbal products. Not all possible drug interactions are listed here. Where can I get more information? Your pharmacist can provide more information about albuterol inhalation. Remember, keep this and all other medicines out of the reach of children, never share your medicines with others, and use this medication only for the indication prescribed. Every effort has been made to ensure that the information provided by [employer]. ('[employer]') is accurate, up-to-date, and complete, but no guarantee is made to that effect. Drug information contained herein may be time sensitive. [employer] information has been compiled for use by healthcare practitioners and consumers in the [place] and therefore [employer] does not warrant that uses outside of the [place] are appropriate, unless specifically indicated otherwise. [employer] drug information does not endorse drugs, diagnose patients or recommend therapy. [employer] drug information is an informational resource designed to assist licensed healthcare practitioners in caring for their patients and/or to serve consumers viewing this service as a supplement to, and not a substitute for, the expertise, skill, knowledge and judgment of healthcare practitioners. The absence of a warning for a given drug or drug combination in no way should be construed to indicate that the drug or drug combination is safe, effective or appropriate for any given patient. [employer] does not assume any responsibility for any aspect of healthcare administered with the aid of information [employer] provides. The information contained herein is not intended to cover all possible uses, directions, precautions, warnings, drug interactions, allergic reactions, or adverse effects. If you have questions about the drugs you are taking, check with your doctor, nurse or pharmacist. Copyright 3411-3502 [employer]. Version: 8.03. Revision Date: 04/24/2018. Emergency Awareness and Preventative Care STROKE is [...] Assistance with quitting is available by contacting 6-951-KQFT-NOW. This is a free resource providing counseling, support, and referral. Or you may contact your personal physician. National Suicide Prevention Lifeline: The National Suicide Prevention [...] CPR? There are two easy steps: Call if you see a teen or adult [...] This Visit (last charted value for your 12/30/2018 visit) Urinalysis 12/30/2018 1:31 PM Ur RBC: 2-5 /HPF Urine Nitrite: Negative Urine Leukocyte Esterase: Moderate Ur Epithelial Cells: 2-5 /HPF Urine Appearance: Clear Urine Glucose Dipstick: Negative Urine Blood Dipstick: Negative Urine Urobilinogen Dipstick: 1.0 EU/dL -- Normal range between ( 0.2 and 1.0 ) Urine Protein Dipstick: Negative Ur Amorph: 2+ Ur Bacteria: 1+ Urine Color: Yellow Ur WBC: 2-5 /HPF Urine Ketones Dipstick: Negative Urine pH Dipstick: 7.0 -- Normal range between ( 6.0 and 8.0 ) Urine Bilirubin Dipstick: Negative Urine Specific Alvin: 1.016 -- Normal range between ( 1.005 and 1.030 ) Urine Type.: U CleanCatch Toxicology 12/30/2018 1:31 PM UDS Amp: Negative UDS Cristel: Negative UDS Benzo: Negative UDS Campos: Negative UDS Meth: Negative UDS Opi: Negative UDS Oxy: Negative UDS PCP: Negative UDS TCA: Negative UDS THC: Negative Buprenorphine Screen, Urine: Negative Heroin Metab (6AM) by LC-MS/MS, Urine: Negative SpGravity, Urine: 1.015 Propoxyphene, Urine: Negative UDS pH: 7.8 UDS Creatinine, Toxicology: 103.1 mg/dL Patient Name:JUANACOBY Fields I have received and understand this information and was given the opportunity to ask questions. Patient/Senior Advocate Name: Patient/Senior Advocate Signature: Relationship to Patient: Clinician/Hospital Senior Advocate Signature: Date: documented in this encounter Plan of Treatment Not on file documented as of this encounter Visit Diagnoses Not on filedocumented in this encounter
--- OUTSIDE RECORDS SUMMARY | 2024-07-21 12:48 | XMS_ITS | Clinical Summary ---
Author Organization [facility] Address [address] [place] [address] Care Team Providers Care Briefcase Sewer Name Role Phone Unavailable Primary Care Provider Unavailabl e Social History Tobacco Use Types Packs/Day Years Used Date Smoking Tobacco: Never Assessed Comments Unknown Sex and Gender Information Value Date Recorded Sex Assigned at Not on file Legal Sex Female 1:09 PM CDT Gender Identity Not on file Sexual Orientation Not on file Plan of Treatment Not on file
--- OUTSIDE RECORDS SUMMARY | 2024-07-21 12:48 | XMS_ITS | Encounter Summary ---
Author Organization [facility] Address [address] [place] [address] Care Team Providers Care Seat Cover Maker Name Role Phone Unavailable Primary Care Provider Unavailabl e Encounter Details Date Type Department Care Team (Late st Contact Info) Description 12/30/2018 Transcribed Document [facility] [place] Family Medicine [address] [place] [address] ProviderKimberly MD [address] [place] [address] Social History Tobacco Use Types Packs/Day Years Used Date Smoking Tobacco: Never Assessed Comments Unknown Sex and Gender Information Value Date Recorded Sex Assigned at Not on file Legal Sex Female 1:09 PM CDT Gender Identity Not on file Sexual Orientation Not on file documented as of this encounter Miscellaneous Notes * Cerner Conversion Note - Historical ProviderMD - 12/30/2018 2:17 PM DENTAL MOLD MAKER Stroke/Warfarin Instructions Entered On: 12/30/2018 14:17 EST Performed On: 12/30/2018 14:17 EST by Molly Prasad RN Stroke/Warfarin Instructions Stroke/TIA Discharge Ins : N/A Warfarin Discharge Ins : N/A Molly Prasad RN - 12/30/2018 14:17 EST documented in this encounter Plan of Treatment Not on file documented as of this encounter Visit Diagnoses Not on filedocumented in this encounter
--- OUTSIDE RECORDS SUMMARY | 2024-07-21 12:48 | XMS_ITS | Encounter Summary ---
Author Organization [facility] Address [address] [place] [address] Care Team Providers Care Pan Greaser Name Role Phone Unavailable Primary Care Provider Unavailabl e Encounter Details Date Type Department Care Team (Late st Contact Info) Description 02/13/2019 Transcribed Document [facility] [place] [address] [place] [address] ProviderKimberly MD [address] [place] [address] Social History Tobacco Use Types Packs/Day Years Used Date Smoking Tobacco: Never Assessed Comments Unknown Sex and Gender Information Value Date Recorded Sex Assigned at Not on file Legal Sex Female 1:09 PM CDT Gender Identity Not on file Sexual Orientation Not on file documented as of this encounter Miscellaneous Notes * Cerner Conversion Note - Historical ProviderMD - 02/13/2019 11:36 PM LEATHER GRADER Nursing Discharge Summary Entered On: 02/13/2019 23:36 EST Performed On: 02/13/2019 23:36 EST by CHARLI RILEY, journalism teacher Documentation Discharge Date/Time : 02/13/2019 23:36 EST Patient Disposition, General : Discharge Discharge To : Home with ambulatory/outpatient follow-up CHARLI RILEY RN - 02/13/2019 23:36 EST Electronically signed by Sophy [facility] Conversion Director Of Early Childhood Education [place] at 05/29/2022 8:22 AM CDT documented in this encounter Plan of Treatment Not on file documented as of this encounter Visit Diagnoses Not on filedocumented in this encounter
--- OUTSIDE RECORDS SUMMARY | 2024-07-21 12:48 | XMS_ITS | Encounter Summary ---
Author [facility] Address [address] [place] [address] Care Team Providers Care Environmental Protection Economist Name Role Phone Unavailable Primary Care Provider Unavailabl e Encounter Details Date Type Department Care Team (Late st Contact Info) Description 02/11/2019 Transcribed Document [facility] [place] Family Medicine [address] [place] [address] ProviderKimberly MD [address] [place] [address] Social History Tobacco Use Types Packs/Day Years Used Date Smoking Tobacco: Never Assessed Comments Unknown Sex and Gender Information Value Date Recorded Sex Assigned at Not on file Legal Sex Female 1:09 PM CDT Gender Identity Not on file Sexual Orientation Not on file documented as of this encounter Miscellaneous Notes * Cerner Conversion Note - Historical ProviderMD - 02/11/2019 5:23 PM AEROSPACE PROJECT MANAGER Nursing Discharge Summary Entered On: 02/11/2019 17:24 EST Performed On: 02/11/2019 17:23 EST by Lia Lambert RN Discharge Documentation Discharge Date/Time : 02/11/2019 17:15 EST Patient Disposition, General : Discharge Discharge To : Home with ambulatory/outpatient follow-up Mode Of Departure, General Discharge : Private vehicle Accompanied By, Discharge : Significant other IV Discontinued : Yes Personal Belongings With Patient : Yes Discharge Instructions Reviewed With, Opportunity For Questions Given : Patient Patient Education Completed : Yes Teaching Method : Explanation, Printed materials Teaching Evaluation : Verbalizes understanding Lia Lambert RN - 02/11/2019 17:23 EST documented in this encounter Plan of Treatment Not on file documented as of this encounter Visit Diagnoses Not on filedocumented in this encounter
--- OUTSIDE RECORDS SUMMARY | 2024-07-21 12:48 | XMS_ITS | Referral Summary ---
Author Organization [facility] Address [address] [place] [address] Care Team Providers Care Hand Ii Tube Bender Name Role Phone Unavailable Primary Care Provider [...]
--- OUTSIDE RECORDS SUMMARY | 2024-07-21 12:48 | XMS_ITS | Encounter Summary ---
Author Organization [facility] Address [address] [place] [address] Care Team Providers Care Marking Devices Assembler Name Role Phone Unavailable Primary Care Provider Unavailabl e Encounter Details Date Type Department Care Team (Late st Contact Info) Description 02/11/2019 Transcribed Document [facility] [place] Family Medicine [address] [place] [address] ProviderKimberly MD [address] [place] [address] Social History Tobacco Use Types Packs/Day Years Used Date Smoking Tobacco: Never Assessed Comments Unknown Sex and Gender Information Value Date Recorded Sex Assigned at Not on file Legal Sex Female 1:09 PM CDT Gender Identity Not on file Sexual Orientation Not on file documented as of this encounter Miscellaneous Notes * Cerner Conversion Note - Kimberly ProviderMD - 02/11/2019 11:00 AM LOCATION MANAGER Patient: COBY MERCADO Age: 19 Years Sex: Female : 2000 Admit Date 02/09/2019 00:41 Discharge Date 02/11/2019 17:25 Primary Care Provider JAVIER COOK PRIM DR Discharge Diagnosis (spontaneous vaginal delivery) 02/11/2019 O80 ICD-10-CM Breast feeding status of mother 02/11/2019 Z39.1 ICD-10-CM Single live 02/11/2019 Z37.0 ICD-10-CM Procedures Studies H&H 10.231.4 Reason for Hospitalization Labor Hospital Course with PP care Vital Signs Oxygen Settings (Last) No qualifying data available. VSS Afebrile Physical Exam Pt has no c/o today, denies s/s PPH or PPD. Pt states she is breast feeding and states baby is doing well. Pt states she is ambulating and voiding without difficulty and states her pain is well controlled. HEART: RRR WITHOUT GALLOP OR RUB LUNGS: CTA B/L A&P BREASTS: soft, non tender ABDOMEN: soft, non tender, uterus is firm at 1 below MAEW, no peripheral edema Discharge Disposition Home Discharge Follow Up KEVIN FRAZIER MD-DASHBOARD DEVELOPER - 01:30 PM Discharge Medications (2) Active ferrous sulfate , Oral Multivitamins oral tablet Rx for IB 800mg 1 po every 8 hours as needed, #30 with 2 refills left on chart. Code Status No Code Status Order on Record Condition on Discharge Stable Consulting Physicians No Consulting Physician on Record. Current Diet Order No qualifying data available. Patient Discharge Summary Orders f/u sooner if problems Follow Up Labs/Studies None Pending Labs No Labs on Record Time Spent on Discharge < 30 minutes Electronically signed by Sophy [facility] Conversion Filter Changer Cerner at 05/29/2022 8:22 AM CDT documented in this encounter Plan of Treatment Not on file documented as of this encounter Visit Diagnoses Not on filedocumented in this encounter
--- OUTSIDE RECORDS SUMMARY | 2024-07-21 12:48 | XMS_ITS | Encounter Summary ---
Author Organization [facility] Address [address] [place] [address] Care Team Providers Care Manager Environmental Name Role Phone Unavailable Primary Care Provider Unavailabl e Encounter Details Date Type Department Care Team (Late st Contact Info) Description 02/11/2019 Transcribed Document [facility] [place] Family Medicine [facility] [place] [address] ProviderKimberly MD [address] [id number] Social History Tobacco Use Types Packs/Day Years Used Date Smoking Tobacco: Never Assessed Comments Unknown Sex and Gender Information Value Date Recorded Sex Assigned at Not on file Legal Sex Female 1:09 PM CDT Gender Identity Not on file Sexual Orientation Not on file documented as of this encounter Miscellaneous Notes * Cerner Conversion Note - Kimberly ProviderMD - 02/11/2019 11:07 AM VIDEO PRODUCTION ASSISTANT Final Discharge Planning Entered On: 02/11/2019 11:07 EST Performed On: 02/11/2019 11:07 EST by NICK LLANOS SW Final Discharge Planning Discharge Arrangements : Patient Post-Acute Information Patient Name: COBY MERCADO Gender: Female : [birth year] Age: 19 Years No Post-Acute Placement(s) Listed No Post-Acute Service(s) Listed No [place] Referral(s) Listed Discharge To Care Management : Home/Residential/Fdc or Self Care -01 NICK LLANOS SW - 02/11/2019 11:07 EST documented in this encounter Plan of Treatment Not on file documented as of this encounter Visit Diagnoses Not on filedocumented in this encounter
--- OUTSIDE RECORDS SUMMARY | 2024-07-21 12:48 | XMS_ITS | Encounter Summary ---
Author Organization [facility] Address [address] [place] [address] Care Team Providers Care Facer Operator Name Role Phone Unavailable Primary Care Provider Unavailabl e Encounter Details Date Type Department Care Team (Late st Contact Info) Description 02/11/2019 Transcribed Document [facility] [place] [facility] [address] [place] [address] ProviderKimberly MD [address] [place] [address] Social History Tobacco Use Types Packs/Day Years Used Date Smoking Tobacco: Never Assessed Comments Unknown Sex and Gender Information Value Date Recorded Sex Assigned at Not on file Legal Sex Female 1:09 PM CDT Gender Identity Not on file Sexual Orientation Not on file documented as of this encounter Miscellaneous Notes * Cerner Conversion Note - Kimberly ProviderMD - 02/11/2019 10:24 AM SATELLITE COMMUNICATIONS ENGINEER [address] [address] COBY MERCADO :2000 Visit Time:02/09/2019 Your Visit Summary Your Care Team Admitting Physician - KEVIN FRAZIER MD-ROLL UP GUIDER OPERATOR Attending Physician - KEVIN FRAZIER MD-ROLL UP GUIDER OPERATOR Primary Care Physician - JOYCE, JAVIER TOBIAS Referring Physician - KEVIN FRAZIER MD-ROLL UP GUIDER OPERATOR Your Diagnosis Breast feeding status of mother Encounter for supervision of normal first , unspecified trimester, Encounter for supervision of normal first , unspecified trimester Single live (spontaneous vaginal delivery) What to do next Instructions From Your Care Team Diet after Discharge: Resume usual diet as tolerated Activity After Discharge:As tolerated,Rest and relax today,No strenuous activities,Nothing in the vagina for 6 weeks Lifting Restrictions:No lifting over 10 pounds for 2 weeks Weight Bearing Restrictions:Full weight bearing_ Minimize Stair Climbing Discuss Exercise with your physician Driving after Discharge:No driving for 1 week May Return to Work: per doctor's instructions Showering Bathing:May Shower,No tub bathing, soaking or swimming,_ Breast Care: Wear supportive bras as much as possible Practice self-breast exam monthly , Notify Provider of: Foul smelling vaginal discharge Temperature over 100.4 degrees Fahrenheit Signs of depression or anxiety that makes it hard for you to care for yourself or your baby Weight up more than 2 pounds a day or more than 5 pounds in a week Pass blood clots larger than a golf ball Sharp pain or redness in your legs Painful urination or feeling like you have to go to the bathroom all the time Have breast pain with fever and chills Excessive vomiting or diarrhea Vaginal bleeding greater than 1 pad per hour Pain is worsening and current pain medication is not adequate When to go to the Emergency Room or call 911: Shortness of breath or chest pain Unable to reach provider Follow-Up Appointments Follow Up with KEVIN FRAZIER MD-ROLL UP GUIDER OPERATOR When 02/22/2019 01:30 PM EST Where: [facility] [id number]- Medications What How Much When Instructions Next Dose ferrous sulfate multivitamin, ( Multivitamins oral tablet) next dose due 02/12/18 in am Ibuprofen 800mg, 1 tab, oral, every 8 hours as needed for pain. Next dose due 02/11/18 at 6pm Take your medications faithfully. Do NOT skip [...] This Visit No Immunizations Found Education Materials Vaginal Delivery, Care After Refer to this [...] these instructions at home: Medicines ??? Take fjgr-oxh-pmyupxp and prescription medicines only as told by [...] 01/24/2001 Document Revised: 07/10/2016 Document Reviewed: 02/11/2016 [employer] Interactive Patient Education ?? 2019 [employer]. ibuprofen (EYE bue PROE fen) Advil, Genpril, IBU, Midol IB, Motrin IB, Proprinal, Smart Sense Children's Ibuprofen What is the most important information I should know about ibuprofen? Ibuprofen can increase your risk of fatal heart attack or stroke, especially if you use it ocean transportation intermediary or take high doses, or if you have heart disease. Do not use this medicine just before or after heart bypass surgery (coronary artery bypass graft, or CABG). Ibuprofen may also cause stomach or intestinal bleeding, which can be fatal. These conditions can occur without warning while you are using ibuprofen, especially in older adults. What is ibuprofen? Ibuprofen is a nonsteroidal anti-inflammatory drug (NSAID). Ibuprofen works by reducing hormones that cause inflammation and pain in the body. Ibuprofen is used to reduce fever and treat pain or inflammation caused by many conditions such as headache, toothache, back pain, arthritis, menstrual cramps, or minor injury. This medicine is used in adults and children who are at least 6 months old. Ibuprofen may also be used for purposes not listed in this medication guide. What should I discuss with my healthcare provider before taking ibuprofen? Ibuprofen can increase your risk of fatal heart attack or stroke, especially if you use it mcfp or take high doses, or if you have heart disease. Even people without heart disease or risk factors could have a stroke or heart attack while taking this medicine. Do not use this medicine just before or after heart bypass surgery (coronary artery bypass graft, or CABG). Ibuprofen may also cause stomach or intestinal bleeding, which can be fatal. These conditions can occur without warning while you are using ibuprofen, especially in older adults. You should not use ibuprofen if you are allergic to it, or if you have ever had an asthma attack or severe allergic reaction after taking aspirin or an NSAID. Ask a doctor or pharmacist if it is safe for you to take this medicine if you have: ?? heart disease, high blood pressure, high cholesterol, diabetes, or if you smoke; ?? a history of heart attack, stroke, or blood clot; ?? a history of stomach ulcers or bleeding; ?? asthma; ?? liver or kidney disease; ?? fluid retention; or ?? a connective tissue disease such as Marfan syndrome, Sjogren's syndrome, or lupus. Taking ibuprofen during the last 3 months of may harm the unborn baby. Do not use this medicine without a doctor's advice if you are . It is not known whether ibuprofen passes into breast milk or if it could affect a nursing baby. Ask a doctor before using this medicine if you are . Do not give ibuprofen to a child younger than 2 years old without the advice of a doctor. How should I take ibuprofen? Use exactly as directed on the label, or as prescribed by your doctor. Do not use in larger amounts or for longer than recommended. Use the lowest dose that is effective in treating your condition. Do not take more than your recommended dose. An ibuprofen overdose can damage your stomach or intestines. The maximum amount of ibuprofen for adults is 800 milligrams per dose or 3200 mg per day (4 maximum doses). Use only the smallest amount of ibuprofen needed to get relief from your pain, swelling, or fever. A child's dose of ibuprofen is based on the age and weight of the child. Carefully follow the dosing instructions provided with children's ibuprofen for the age and weight of your child. Ask a doctor or pharmacist if you have questions. Take ibuprofen with food or milk to lessen stomach upset. Shake the oral suspension (liquid) well just before you measure a dose. Measure liquid medicine with the dosing syringe provided, or with a special dose-measuring spoon or medicine cup. If you do not have a dose-measuring device, ask your pharmacist for one. The ibuprofen chewable tablet must be chewed before you swallow it. If you use this medicine long-term, you may need frequent medical tests. Store at room temperature away from moisture and heat. Do not allow the liquid medicine to freeze. Read all patient information, medication guides, and instruction sheets provided to you. Ask your doctor or pharmacist if you have any questions. What happens if I miss a dose? Since ibuprofen is used when needed, you may not be on a dosing schedule. If you are on a schedule, use the missed dose as soon as you remember. Skip the missed dose if it is almost time for your next scheduled dose. Do not use extra medicine to make up the missed dose. What happens if I overdose? Seek emergency medical attention or call the Poison Help line at . Overdose symptoms may include nausea, vomiting, stomach pain, drowsiness, black or bloody stools, coughing up blood, shallow breathing, fainting, or coma. What should I avoid while taking ibuprofen? Avoid drinking alcohol. It may increase your risk of stomach bleeding. Avoid taking aspirin while you are taking ibuprofen. Avoid taking ibuprofen if you are taking aspirin to prevent stroke or heart attack. Ibuprofen can make aspirin less effective in protecting your heart and blood vessels. If you must use both medications, take the ibuprofen at least 8 hours before or 30 minutes after you take the aspirin (non-enteric coated form). Ask a doctor or pharmacist before using any cold, allergy, or pain medicine. Many medicines available over the counter contain aspirin or other medicines similar to ibuprofen. Taking certain products together can cause you to get too much of this type of medication. Check the label to see if a medicine contains aspirin, ibuprofen, ketoprofen, or naproxen. What are the possible side effects of ibuprofen? Get emergency medical help if you have signs of an allergic reaction: sneezing, runny or stuffy nose; wheezing or trouble breathing; hives; swelling of your face, lips, tongue, or throat. Get emergency medical help if you have signs of a heart attack or stroke: chest pain spreading to your jaw or shoulder, sudden numbness or weakness on one side of the body, slurred speech, leg swelling, feeling short of breath. Stop using ibuprofen and call your doctor at once if you have: ?? changes in your vision; ?? shortness of breath (even with mild exertion); ?? swelling or rapid weight gain; ?? the first sign of any skin rash, no matter how mild; ?? signs of stomach bleeding--bloody or tarry stools, coughing up blood or vomit that looks like coffee grounds; ?? liver problems--nausea, upper stomach pain, itching, tired feeling, flu-like symptoms, loss of appetite, dark urine, gladis-colored stools, jaundice (yellowing of the skin or eyes); ?? kidney problems--little or no urinating, painful or difficult urination, swelling in your feet or ankles, feeling tired or short of breath; ?? low red blood cells (anemia)--pale skin, feeling light-headed or short of breath, rapid heart rate, trouble concentrating; or ?? severe skin reaction--fever, sore throat, swelling in your face or tongue, burning in your eyes, skin pain followed by a red or purple skin rash that spreads (especially in the face or upper body) and causes blistering and peeling. Common side effects may include: ?? nausea, vomiting, gas; ?? bleeding; or ?? dizziness, headache. This is not a complete list of side effects and others may occur. Call your doctor for medical advice about side effects. You may report side effects to FDA at 8-676-TGT-0108. What other drugs will affect ibuprofen? Ask your doctor before using ibuprofen if you take an antidepressant such as citalopram, escitalopram, fluoxetine (Prozac), fluvoxamine, paroxetine, sertraline (Zoloft), trazodone, or vilazodone. Taking any of these medicines with an NSAID may cause you to bruise or bleed easily. Ask a doctor or pharmacist if it is safe for you to use ibuprofen if you are also using any of the following drugs: ?? cyclosporine; ?? pemetrexed; ?? lithium; ?? methotrexate; ?? a blood thinner (warfarin, Coumadin, Jantoven); ?? heart or blood pressure medication, including a diuretic or 'water pill'; or ?? steroid medicine (such as prednisone). This list is not complete. Other drugs may interact with ibuprofen, including prescription and avge-adf-aodhmax medicines, vitamins, and herbal products. Not all possible interactions are listed in this medication guide. Where can I get more information? Your pharmacist can provide more information about ibuprofen. Remember, keep this and all other medicines out of the reach of children, never share your medicines with others, and use this medication only for the indication prescribed. Every effort has been made to ensure that the information provided by [employer] ('[employer]') is accurate, up-to-date, and complete, but no guarantee is made to that effect. Drug information contained herein may be time sensitive. [employer] information has been compiled for use by healthcare practitioners and consumers in the [place] and therefore [employer] does not warrant that uses outside of the [place] are appropriate, unless specifically indicated otherwise. [employer] drug information does not endorse drugs, diagnose patients or recommend therapy. [employer] drug information is an informational resource designed [...] effective or appropriate for any given patient. [facility] does not assume any responsibility for any aspect of healthcare administered with the aid of information [facility] provides. The information contained herein is not intended to cover all possible uses, directions, precautions, warnings, drug interactions, allergic reactions, or adverse effects. If you have questions about the drugs you are taking, check with your doctor, nurse or pharmacist. Copyright 6422-3042 [facility] [employer]ES[employer]. Version: 19.01. Revision Date: 09/22/2018. Emergency Awareness and Preventative Care STROKE is [...] Assistance with quitting is available by contacting 5-737-JMKA-NOW. This is a free resource providing counseling, [...] This Visit (last charted value for your 02/09/2019 visit) Hematology 2019 4:21 AM WBC: 12.6 K/uL -- Normal range between ( 3.9 and 10.0 ) RBC: 3.57 Million/uL -- Normal range between ( 3.93 and 5.22 ) Hct: 31.4 % -- Normal range between ( 34.1 and 44.9 ) Hgb: 10.2 Gram/dL -- Normal range between ( 11.2 and 15.7 ) Platelet Count: 191 K/uL -- Normal range between ( 163 and 369 ) MCH: 28.6 pg -- Normal range between ( 25.6 and 32.2 ) MCHC: 32.5 Gram/dL -- Normal range between ( 32.3 and 36.5 ) MCV: 88.0 fL -- Normal range between ( 79.0 and 94.8 ) Slide Review: No RDW: 15.6 % -- Normal range between ( 11.6 and 14.4 ) MPV: 12.0 fL -- Normal range between ( 9.4 and 12.4 ) 02/09/2019 2:00 AM Eos %: 4.0 % -- Normal range between ( 1.0 and 7.0 ) [place] #: 0.79 K/uL -- Normal range between ( 0.24 and 0.82 ) Eos #: 0.41 K/uL -- Normal range between ( 0.04 and 0.54 ) [place] %: 7.7 % -- Normal range between ( 4.7 and 12.5 ) Baso %: 0.2 % -- Normal range between ( 0.0 and 1.0 ) Baso #: 0.02 K/uL -- Normal range between ( 0.01 and 0.08 ) Neut %: 62.7 % -- Normal range between ( 34.0 and 71.0 ) Neut #: 6.40 K/uL -- Normal range between ( 1.56 and 6.13 ) Lymph %: 25.0 % -- Normal range between ( 19.3 and 53.0 ) Lymph #: 2.55 K/uL -- Normal range between ( 1.18 and 3.74 ) IG#: 0 x10(3)/uL IG%: 0 % -- Normal range between ( 0 and 1 ) Blood Bank 02/09/2019 1:59 PM RhIg Product Ready: Not Indicated # of Vials: 0 02/09/2019 4:47 AM ABO/Rh Repeat: O NEG Wk D Interp: Negative 02/09/2019 2:00 AM ABO/Rh: O NEG Antibody Screen (Tube): Negative ABSC General Chemistry 02/09/2019 5:33 AM Glucose POC2: 82 mg/dL -- Normal range between ( 70 and 110 ) Toxicology 02/09/2019 2:00 AM UDS Amp: Negative UDS Cristel: Negative UDS Benzo: Negative UDS Campos: Negative UDS Meth: Negative UDS Opi: Negative UDS Oxy: Negative UDS PCP: Negative UDS TCA: Negative UDS THC: Negative Buprenorphine Screen, Urine: Negative Heroin Metab (6AM) by LC-MS/MS, Urine: Negative SpGravity, Urine: 1.027 Propoxyphene, Urine: Negative UDS pH: 7.3 UDS Creatinine, Toxicology: 183.4 mg/dL Patient Name:COBY MERCADO I have received and understand this information and was given the opportunity to ask questions. Patient/Tree Planter Name: Patient/Tree Planter Signature: Relationship to Patient: Clinician/Hospital Tree Planter Signature: Date: Electronically signed by Sophy, [facility] Conversion Community Affairs Director Cerner at 05/29/2022 8:15 AM CDT documented in this encounter Plan of Treatment Not on file documented as of this encounter Visit Diagnoses Not on filedocumented in this encounter
--- OUTSIDE RECORDS SUMMARY | 2024-07-21 12:48 | XMS_ITS | Patient Health Record ---
Author Organization [facility] Address [address] [place] [address] Care Team Providers Care Structural Draftsman Name Role Phone Darlin Madrid Unavailable [phone] Allergies No Known Allergies Reason For Referral No Information Medications Medication SIG (Take, Route, Frequency, Duration) Notes Start Date End Date Status Kyleena 19.5 MG Intrauterine Device as directed Intrauterine Active Social History Sex Assigned At : Social History Observation Description Sex Assigned At Female Problems Problem Type SNOMED Code ICD Code Onset Dates Problem Status W/U Status Risk Notes Problem Encounter for insertion of intrauterine contraceptive device (IUD) (Z30.430) Active confirmed Plan Of Treatment No Information Insurance Providers Payer Name Payer Address Payer Phone Subscriber Number Group Number Insured Name Patient Relationship to Insured Coverage Start Date Coverage End Date [employer] [address] [address] [place], [place] [id number] Trang Mercado Self - patient is the insured 2 Medical (General) History Medical History History ICD Code Amemia Anxiety Depression asthma Surgical History Surgery Date(Month/Year) Oral
--- OUTSIDE RECORDS SUMMARY | 2024-07-21 12:48 | XMS_ITS | Encounter Summary ---
Author Organization [facility] Address [address] [place] [address] Care Team Providers Care Paratransit Operator Name Role Phone Unavailable Primary Care Provider Unavailabl e Encounter Details Date Type Department Care Team (Late st Contact Info) Description 02/13/2019 Transcribed Document [facility] [place] Family [place] [address] [place] [address] ProviderKimberly MD [address] [place] [id number] Social History Tobacco Use Types Packs/Day Years Used Date Smoking Tobacco: Never Assessed Comments Unknown Sex and Gender Information Value Date Recorded Sex Assigned at Not on file Legal Sex Female 1:09 PM CDT Gender Identity Not on file Sexual Orientation Not on file documented as of this encounter Miscellaneous Notes * Cerner Conversion Note - Kimberly Norton MD - 02/13/2019 11:39 PM 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 It is usually caused by delaying feedings, which can cause milk to build up. Breast engorgement can happen at any time while you are breast feeding, and is normal in the first 3?5 days after giving . The condition can make your breasts feel heavy, full, hard, tightly stretched, warm, and tender. Breast engorgement should improve within 24?48 hours of feeding your baby or expressing [...] 1 month, make sure you are every 1?3 hours during the day. You may need [...] flow. Managing pain and swelling ??? Take hqev-faf-xjehviv and prescription medicines only as told by your health care provider. ??? If directed, put ice on your breasts: ? Put ice in a plastic bag. ? Place a towel between your skin and the bag. ? Leave the ice on for 20 minutes, 2?3 times a day. ??? If you feel pain while , take your baby off your breast and try again. General instructions ??? After or pumping wear a snug bra or tank top for 1?2 days. This will signal your body to [...] it is normal to experience breast engorgement 3?5 days after giving , it can happen [...] 05/24/2005 Document Revised: 03/03/2017 Document Reviewed: 03/03/2017 BM[employer] Interactive Patient Education ? 2019 [employer] Hemorrhoids Hemorrhoids are swollen veins in [...] about taking products that have added fiber (fiber?supplements). ??? Drink enough fluid to keep your pee (urine) clear or pale yellow. For Pain and Swelling ??? Take a warm-water bath (sitz bath) for 20 minutes to ease pain. Do this 3?4 times a day. ??? If directed, put ice on the painful area. It may be helpful to use ice between your warm baths. ? Put ice in a plastic bag. ? Place a towel between your skin and the bag. ? Leave the ice on for 20 minutes, 2?3 times a day. General instructions ??? Take owei-mjg-yovnhaf and prescription medicines only as told by [...] 11/05/2008 Document Revised: 07/04/2016 Document Reviewed: 10/11/2015 [employer] Interactive Patient Education ? 2019 [employer] documented in this encounter Plan of Treatment Not on file documented as of this encounter Visit Diagnoses Not on filedocumented in this encounter
== END 2024-07-20 23:59 | disposition home or self-care (01) ==
LOC: LAB.DROPOF 07-21 12:39
PROVIDERS: PCP Student in an Organized Health Care Education/Training Program; Visit Provider Student in an Organized Health Care Education/Training Program
DX: N39.0 Urinary tract infection, site not specified (principal)
CPT/HCPCS: 87086